=== PATIENT | female | born 1955 ===

== ENCOUNTER 2021-07-21 22:41 | Inpatient (IN) | payer OTHER ==
[2021-07-21] MEDS ORDERED: NA CHLORIDE 0.9% 1,000 ML ONE (22:57)
[2021-07-21] MEDS ORDERED: ONDANSETRON 4 MG/2 ML VIAL ONE (22:57)
[2021-07-21] MEDS ORDERED: NA CHLORIDE 0.9% 500 ML ONE (22:57)
[2021-07-21] MEDS ORDERED: MORPHINE 4 MG/ML SYR ONE (22:57)
[2021-07-21] MEDS ORDERED: PANTOPRAZOLE 40 MG INJ ONE (22:57)
[2021-07-21 23:36] LABS: Protime INR 1.07
[2021-07-21 23:57] LABS: ALT/SGPT 49 U/L (12-78); AST/SGOT 69 U/L (15-37); Albumin 2.3 g/dL (3.4-5.0); Alkaline Phosphatase 247 U/L (45-117); BUN Blood Urea Nitrogen 43 mg/dL (7-18); Bicarbonate 27 mmol/L (21-32); Bilirubin Direct 0.2 mg/dL (0-0.2); Bilirubin Total 0.5 mg/dL (0.2-1.0); Glucose Level 112 mg/dL (74-106); Lipase 273 U/L (73-393); Magnesium 2.3 mg/dL (1.8-2.4); NT PRO-BNP 1873 pg/mL (<125); Potassium 3.8 mmol/L (3.5-5.1); Protein, Total 8.1 g/dL (6.4-8.2); Sodium Level 133 mmol/L (136-145); Troponin (Emerg Dept Use Only) < 0.02 ng/mL (0.0-0.045)
--- NOTE | 2021-07-21 23:59 | ER ---
Nurse's Notes [facility] Name: Katie Lacy Age: 66 yrs Sex: Female : 1955 Arrival Date: 07/21/2021 Time: 22:42 Bed 15 Private MD: Diagnosis: Unspecified kidney failure;Fistula of intestine;Burn of second degree of abdominal wall-excoriated;Cellulitis of abdominal wall;Type 2 diabetes mellitus with hyperglycemia Presentation: 07/21 22:46 Chief complaint: Patient states: Pt arrived EMS from [facility] c/o abd df1 pain x 1 week. Coronavirus screen: Vaccine status: Patient reports receiving the 2nd dose of the covid vaccine. Client denies travel out of the [place] in the last 14 days. At this time, the client does not indicate any symptoms associated with coronavirus-19. Ebola Screen: Patient negative for fever greater than or equal to 101.5 degrees Fahrenheit, and additional compatible Ebola Virus Disease symptoms Patient denies exposure to infectious person. Patient denies travel to an Ebola-affected area in the 21 days before illness onset. Initial Sepsis Screen: Does the patient meet any 2 criteria? No. Patient's initial sepsis screen is negative. Does the patient have a suspected source of infection? No. Patient's initial sepsis screen is negative. Risk Assessment: Do you want to hurt yourself or someone else? Patient reports no desire to harm self or others. Onset of symptoms was July 14, 2021. 22:46 Method Of Arrival: EMS: [facility] df1 22:46 Acuity: COLBY 3 df1 Triage Assessment: 22:48 General: Appears in no apparent distress. uncomfortable, Behavior is calm, cooperative. df1 Pain: Complains of pain in right upper quadrant, left upper quadrant, right lower quadrant and left lower quadrant Pain does not radiate. Pain currently is 6 out of 10 on a pain scale. GI: Abdomen is flat, open fistula draining stool noted. Historical: - Allergies: 22:48 No Known Allergies; df1 - Home Meds: 07/22 00:13 aspirin 81 mg Oral tab 81 mg daily [Active]; atorvastatin 20 mg oral tab 1 tab once df1 daily [Active]; calcium carbonate 500 mg calcium (1,250 mg) Oral tab daily [Active]; Cymbalta 30 mg oral cpDR 1 cap 2 times per day [Active]; digoxin 250 mcg (0.25 mg) Oral tab 1 tab once daily [Active]; diphenoxylate-atropine 2.5-0.025 mg Oral tab 2 tabs 4 times per day [Active]; Lovenox 80 mg/0.8 mL Sub-Q syrg 0.8 mL every 12 hours [Active]; Klor-Con M20 20 mEq Oral TbTQ 1 tab 2 times per day [Active]; levothyroxine 25 mcg cap 1 cap once daily [Active]; melatonin 5 mg Oral cap nightly [Active]; metoprolol tartrate 25 mg Oral tab 1 tab 2 times per day [Active]; omega-3 fatty acids oral cap daily [Active]; Percocet 5-325 mg Oral tab 1 tab every 6 hours [Active]; sodium bicarbonate 650 mg Oral tab three times a day [Active]; trazodone 50 mg Oral tab 1 tab once daily [Active]; Ativan 0.5 mg Oral tab 1 tab as needed [Active]; Marinol 2.5 mg Oral cap 1 cap 2 times per day [Active]; Seroquel 25 mg Oral tab 1 tab nightly [Active]; - PMHx: 07/21 22:48 Diabetes mellitus; Hypertensive disorder; postprocedural surgery fistula; Angina df1 pectoris; 07/22 00:13 Depressive disorder; Anxiety; Hypothyroidism; df1 - PSHx: 07/21 22:48 Total abdominal hysterectomy; df1 - Immunization history:: Adult Immunizations up to date, Client reports receiving the 2nd dose of the Covid vaccine, Pneumococcal vaccine is up to date, Flu vaccine is up to date. - Social history:: Smoking status: Patient denies any tobacco usage or history of. - Family history:: not pertinent. Screenin:53 Abuse screen: Denies threats or abuse. Nutritional screening: No deficits noted. df1 Tuberculosis screening: No symptoms or risk factors identified. Fall Risk None identified. Assessment: 22:53 GI: Pt has open wound from mid abd area draining stool. Skin surrounding wound red/ df1 inflamed. Bowel sounds present X 4 quads. Abd is soft Abdomen is tender to palpation X 4 quads. Reports lower abdominal pain, upper abdominal pain, Patient currently denies nausea. 23:16 Reassessment: Point of Contact (Daughter) [phone]. ss Vital Signs: 22:46 BP 130 / 87; Pulse 89; Resp 18; Temp 97.5(O); Pulse Ox 100% on R/A; Weight 68.04 kg; df1 Height 5 ft. 3 in. (160.02 cm); Pain 6/10; 07/22 00:22 BP 114 / 70; Pulse 88; Resp 18; Pulse Ox 95% on R/A; Pain 4/10; df1 01:30 BP 119 / 69; Pulse 87; Resp 18; Pulse Ox 100% on R/A; df1 07/21 22:46 Body Mass Index 26.57 (68.04 kg, 160.02 cm) df1 ED Course: 07/21 22:42 Patient arrived in ED. ss 22:44 Dudley Gallagher MD is Attending Physician. mely 22:46 iRma Arellano is Primary Nurse. df1 22:48 Triage completed. df1 22:48 Arm band placed on right wrist. df1 22:53 Patient has correct armband on for positive identification. Placed in gown. Bed in low df1 position. Call light in reach. Side rails up X 1. geophysical laboratory supervisor on. Pulse ox on. NIBP on. 22:53 No provider procedures requiring assistance completed. df1 23:14 Inserted saline lock: 22 gauge in right antecubital area, using aseptic technique. ds4 Blood collected. Missed attempt(s): 20 gauge in right forearm. Bleeding controlled, band aid applied, catheter tip intact. 23:36 Chest Single View In Process Unspecified. EDMS 07/22 00:05 initiated a transfer Cathy from [facility]. mw2 00:24 Wound care: to Fistula to abdomen draining yellow/brown stool. Xeroform placed to df1 excoriated areas around wound. Dry gauze placed directly to open areas. ABD pads placed over. Pt tolerated well. Excoriated wound extends from left iliac to right iliac and down to rios areas and between thighs and groin. Topical lotion placed to these areas. 00:28 [facility] denied due to capacity. mw2 00:32 initiated a transfer with Fay from [facility]. mw2 00:41 Titi Becerra DO is Hospitalizing Provider. mely 00:45 [facility] denied due to capacity. mw2 00:55 Urine Culture Sent. df1 01:53 Urine Microscopic Only Sent. df1 01:53 Procalcitonin Sent. df1 03:13 Patient admitted, IV remains in place. df1 Administered Medications: 07/20 23:15 Drug: NS 0.9% 500 ml Route: IV; Rate: bolus; Site: right antecubital; df1 07/22 00:23 Follow up: IV Status: Completed infusion; IV Intake: 500ml df1 07/20 23:15 Drug: NS 0.9% 1000 ml Route: IV; Rate: 125 ml/hr; Site: right antecubital; df1 23:15 Drug: ProTONIX (pantoprazole) 40 mg Route: IVP; Site: right antecubital; df1 07/22 00:24 Follow up: Response: No adverse reaction df1 07/20 23:15 Drug: morphine 4 mg Route: IVP; Site: right antecubital; df1 07/22 00:24 Follow up: Response: Pain is decreased df1 07/20 23:15 Drug: Zofran (Ondansetron) 4 mg Route: IVP; Site: right antecubital; df1 07/22 00:23 Follow up: Response: No adverse reaction df1 00:55 Drug: Zosyn (piperacillin-tazobactam) 3.375 grams Route: IVPB; Infused Over: 60 mins; df1 Site: right antecubital; 02:16 Follow up: IV Status: Completed infusion; IV Intake: 50ml df1 Intake: 00:23 IV: 500ml; Total: 500ml. df1 02:16 IV: 50ml; Total: 550ml. df1 Outcome: 07/21 23:58 ER care complete, transfer ordered by . [facility] 07/22 00:46 Decision to Hospitalize by Provider. mely 03:13 Admitted to Med/surg accompanied by tech. df1 03:13 Condition: stable 03:13 Instructed on the need for admit. 03:16 Patient left the ED. df1 Signatures: Dispatcher [employer] EDMS Dudley Gallagher MD MD cha Smirch, Shelby, RN RN ss Yeison Queen ds4 Dru Lemra mw2 Rima Arellano df1
--- NOTE | 2021-07-21 23:59 | EDPHYS ---
Physician Documentation [facility] Name: Katie Lacy Age: 66 yrs Sex: Female : 1955 Arrival Date: 07/21/2021 Time: 22:42 Bed 15 Private MD: ED Physician Dudley Gallagher HPI: 07/21 22:55 This 66 yrs old Female presents to ER via EMS with complaints of Abdominal mely Pain. 22:55 The patient presents with abdominal pain in the upper abdomen, in the lower abdomen. mely Onset: The symptoms/episode began/occurred 6 week(s) ago. The symptoms do not radiate. Associated signs and symptoms: none. The symptoms are described as constant. Modifying factors: The symptoms are alleviated by nothing, the symptoms are aggravated by movement, pressure, touching the area. Severity of pain: At its worst the pain was moderate in the emergency department the pain is unchanged. The patient has not experienced similar symptoms in the past. Historical: - Allergies: 22:48 No Known Allergies; df1 - Home Meds: 07/22 00:13 aspirin 81 mg Oral tab 81 mg daily [Active]; atorvastatin 20 mg oral tab 1 tab once df1 daily [Active]; calcium carbonate 500 mg calcium (1,250 mg) Oral tab daily [Active]; Cymbalta 30 mg oral cpDR 1 cap 2 times per day [Active]; digoxin 250 mcg (0.25 mg) Oral tab 1 tab once daily [Active]; diphenoxylate-atropine 2.5-0.025 mg Oral tab 2 tabs 4 times per day [Active]; Lovenox 80 mg/0.8 mL Sub-Q syrg 0.8 mL every 12 hours [Active]; Klor-Con M20 20 mEq Oral TbTQ 1 tab 2 times per day [Active]; levothyroxine 25 mcg cap 1 cap once daily [Active]; melatonin 5 mg Oral cap nightly [Active]; metoprolol tartrate 25 mg Oral tab 1 tab 2 times per day [Active]; omega-3 fatty acids oral cap daily [Active]; Percocet 5-325 mg Oral tab 1 tab every 6 hours [Active]; sodium bicarbonate 650 mg Oral tab three times a day [Active]; trazodone 50 mg Oral tab 1 tab once daily [Active]; Ativan 0.5 mg Oral tab 1 tab as needed [Active]; Marinol 2.5 mg Oral cap 1 cap 2 times per day [Active]; Seroquel 25 mg Oral tab 1 tab nightly [Active]; - PMHx: 07/21 22:48 Diabetes mellitus; Hypertensive disorder; postprocedural surgery fistula; Angina df1 pectoris; 07/22 00:13 Depressive disorder; Anxiety; Hypothyroidism; df1 - PSHx: 07/21 22:48 Total abdominal hysterectomy; df1 - Immunization history:: Adult Immunizations up to date, Client reports receiving the 2nd dose of the Covid vaccine, Pneumococcal vaccine is up to date, Flu vaccine is up to date. - Social history:: Smoking status: Patient denies any tobacco usage or history of. - Family history:: not pertinent. ROS: 22:55 Constitutional: Negative for fever, chills, and weight loss, Eyes: Negative for injury, mely pain, redness, and discharge, ENT: Negative for injury, pain, and discharge, Neck: Negative for injury, pain, and swelling, Cardiovascular: Negative for chest pain, palpitations, and edema, Respiratory: Negative for shortness of breath, cough, wheezing, and pleuritic chest pain, Back: Negative for injury and pain, : Negative for injury, bleeding, discharge, and swelling, MS/Extremity: Negative for injury and deformity, Neuro: Negative for headache, weakness, numbness, tingling, and seizure, Psych: Negative for depression, anxiety, suicide ideation, homicidal ideation, and hallucinations, Allergy/Immunology: Negative for hives, rash, and allergies, Endocrine: Negative for neck swelling, polydipsia, polyuria, polyphagia, and marked weight changes, Hematologic/Lymphatic: Negative for swollen nodes, abnormal bleeding, and unusual bruising. 22:55 Abdomen/GI: Positive for abdominal pain, abdominal cramps, of the right upper quadrant, left upper quadrant, right lower quadrant and left lower quadrant. 22:55 Skin: Positive for erythema, of the abdomen, diffusely, excoriated. Exam: 22:55 Constitutional: This is a well developed, well nourished patient who is awake, alert, mely and in no acute distress. Head/Face: Normocephalic, atraumatic. Eyes: Pupils equal round and reactive to light, extra-ocular motions intact. Lids and lashes normal. Conjunctiva and sclera are non-icteric and not injected. Cornea within normal limits. Periorbital areas with no swelling, redness, or edema. ENT: Nares patent. No nasal discharge, no septal abnormalities noted. Tympanic membranes are normal and external auditory canals are clear. Oropharynx with no redness, swelling, or masses, exudates, or evidence of obstruction, uvula midline. Mucous membranes moist. Neck: Trachea midline, no thyromegaly or masses palpated, and no cervical lymphadenopathy. Supple, full range of motion without nuchal rigidity, or vertebral point tenderness. No Meningismus. Chest/axilla: Normal chest wall appearance and motion. Nontender with no deformity. No lesions are appreciated. Cardiovascular: Regular rate and rhythm with a normal S1 and S2. No gallops, murmurs, or rubs. Normal PMI, no JVD. No pulse deficits. Respiratory: Lungs have equal breath sounds bilaterally, clear to auscultation and percussion. No rales, rhonchi or wheezes noted. No increased work of breathing, no retractions or nasal flaring. Back: No spinal tenderness. No costovertebral tenderness. Full range of motion. Female : Normal external genitalia. MS/ Extremity: Pulses equal, no cyanosis. Neurovascular intact. Full, normal range of motion. Neuro: Awake and alert, GCS 15, oriented to person, place, time, and situation. Cranial nerves II-XII grossly intact. Motor strength 5/5 in all extremities. Sensory grossly intact. Cerebellar exam normal. Normal gait. Psych: Awake, alert, with orientation to person, place and time. Behavior, mood, and affect are within normal limits. 22:55 Abdomen/GI: Inspection: abdomen excoriated, with draining fistula, Bowel sounds: normal, Palpation: mild abdominal tenderness, in all quadrants, Liver: no appreciated palpable abnormalities, Hernia: not appreciated. 22:55 Skin: cellulitis, that is moderate, entire abdomen excoriated, painful. 23:10 ECG was reviewed by the Attending Physician. [facility] Vital Signs: 22:46 BP 130 / 87; Pulse 89; Resp 18; Temp 97.5(O); Pulse Ox 100% on R/A; Weight 68.04 kg; df1 Height 5 ft. 3 in. (160.02 cm); Pain 6/10; 07/22 00:22 BP 114 / 70; Pulse 88; Resp 18; Pulse Ox 95% on R/A; Pain 4/10; df1 01:30 BP 119 / 69; Pulse 87; Resp 18; Pulse Ox 100% on R/A; df1 07/21 22:46 Body Mass Index 26.57 (68.04 kg, 160.02 cm) df1 MDM: 07/21 22:44 Patient medically screened. mely 23:01 Differential diagnosis: gastroesophageal reflux disease, non-specific abd pain, mely pancreatitis, Pyelonephritis, urinary tract infection. Data reviewed: vital signs, nurses notes, lab test result(s), EKG, radiologic studies, CT scan, plain films. Data interpreted: property assessment monitor: rate is 89 beats/min, rhythm is regular, Pulse oximetry: on room air is 100 %. Test interpretation: by ED physician or midlevel provider: ECG, plain radiologic studies. Counseling: I had a detailed discussion with the patient and/or guardian regarding: the historical points, exam findings, and any diagnostic results supporting the discharge/admit diagnosis, lab results, radiology results, the need to transfer to another facility, for higher level of care, [facility] does not immediately have the required specialist. 07/21 22:54 Order name: Basic Metabolic Panel; Complete Time: 23:58 [facility] 07/21 22:54 Order name: CBC with Diff; Complete Time: 00:14 [facility] 07/21 22:54 Order name: LFT's; Complete Time: 23:58 [facility] 07/21 22:54 Order name: Magnesium; Complete Time: 23:58 [facility] 07/21 22:54 Order name: NT PRO-BNP; Complete Time: 23:58 [facility] 07/21 22:54 Order name: PT-INR; Complete Time: 23:55 [facility] 07/21 22:54 Order name: Troponin (emerg Dept Use Only); Complete Time: 23:58 [facility] 07/21 22:54 Order name: Lipase; Complete Time: 23:58 [facility] 07/21 22:54 Order name: Lactate; Complete Time: 23:55 [facility] 07/21 22:54 Order name: SARS-COV-2 RT PCR (Document "Date of Onset" if Symptomatic); Complete Time: [facility] 00:11 07/21 23:10 Order name: Digoxin; Complete Time: 23:58 [facility] 07/22 00:01 Order name: Urine Culture [facility] 07/22 00:36 Order name: Urine Dipstick-Ancillary; Complete Time: 00:42 [facility] 07/22 01:21 Order name: Blood Culture Adult (2) [facility] 07/21 23:12 Order name: Chest Single View [facility] 07/22 00:10 Order name: Abdomen [facility] 07/22 01:21 Order name: Uric Acid [facility] 07/22 01:21 Order name: TSH [facility] 07/22 01:21 Order name: T4 Free [facility] 07/22 01:21 Order name: Procalcitonin [facility] 07/22 01:26 Order name: Urine Microscopic Only [facility] 07/22 01:27 Order name: Urine Microscopic Only [facility] 07/21 22:54 Order name: EKG; Complete Time: 23:17 [facility] 07/21 22:54 Order name: Cardiac monitoring; Complete Time: 23:14 [facility] 07/21 22:54 Order name: EKG - Nurse/Tech; Complete Time: 23:14 [facility] 07/21 22:54 Order name: IV Saline Lock; Complete Time: 23:14 [facility] 07/21 22:54 Order name: Labs collected and sent; Complete Time: 23:14 [facility] 07/21 22:54 Order name: O2 Per Protocol; Complete Time: 23:14 [facility] 07/21 22:54 Order name: O2 Sat Monitoring; Complete Time: 23:14 [facility] 07/21 23:59 Order name: Bae; Complete Time: 23:59 [facility] 07/22 00:01 Order name: Urine Dipstick-Ancillary (obtain specimen); Complete Time: 00:55 [facility] EC:10 Rate is 89 beats/min. Rhythm is regular. QRS [place] is Normal. NM interval is normal. QRS mely interval is normal. QT interval is normal. No Q waves. T waves are Normal. ST Segment is depressed in leads II, III, aVF, V3, V4, V5, V6. Interpreted by me. Reviewed by me. Administered Medications: 07/20 23:15 Drug: NS 0.9% 500 ml Route: IV; Rate: bolus; Site: right antecubital; [facility] 07/22 00:23 Follow up: IV Status: Completed infusion; IV Intake: 500ml [facility] 07/20 23:15 Drug: NS 0.9% 1000 ml Route: IV; Rate: 125 ml/hr; Site: right antecubital; df1 23:15 Drug: ProTONIX (pantoprazole) 40 mg Route: IVP; Site: right antecubital; df1 07/22 00:24 Follow up: Response: No adverse reaction df1 07/20 23:15 Drug: morphine 4 mg Route: IVP; Site: right antecubital; df1 07/22 00:24 Follow up: Response: Pain is decreased df1 07/20 23:15 Drug: Zofran (Ondansetron) 4 mg Route: IVP; Site: right antecubital; df1 07/22 00:23 Follow up: Response: No adverse reaction df1 00:55 Drug: Zosyn (piperacillin-tazobactam) 3.375 grams Route: IVPB; Infused Over: 60 mins; df1 Site: right antecubital; 02:16 Follow up: IV Status: Completed infusion; IV Intake: 50ml df1 Disposition Summary: 07/22/21 00:46 Hospitalization Ordered Hospitalization Status: Inpatient Admission mely Provider: iTti Becerra cha Location: Telemetry/MedSurg (Inpatient) mely Condition: Stable(07/22/21 00:46) mely Problem: new(07/22/21 00:46) mely Symptoms: have improved(07/22/21 00:46) mely Bed/Room Type: Standard mely Room Assignment: 204(07/22/21 01:23) Diagnosis - Unspecified kidney failure mely - Fistula of intestine(07/22/21 00:46) mely - Burn of second degree of abdominal wall - excoriated(07/22/21 00:46) mely - Cellulitis of abdominal wall mely - Type 2 diabetes mellitus with hyperglycemia(07/22/21 00:46) mely Forms: - Medication Reconciliation Form mely - SBAR form mely Signatures: Dispatcher [employer] EDDee Dee Mcelroy RN RN mw Anderson, Corey, MD MD cha Attema, Lee, HOT KNIFE FOXING CUTTER-C HOT KNIFE FOXING CUTTER-Cla1 Rima Arellano df1 Corrections: (The following items were deleted from the chart) 07/21 23:41 23:12 Abdomen ordered. EDMS EDMS 23:55 23:17 Chest Single View+RAD.RAD.BRZ ordered. EDMS EDMS 07/22 00:10 07/21 23:17 Abdomen Pelvis W Con+CT.RAD.BRZ ordered. EDMS EDMS 07/22 00:10 00:02 Abdomen Pelvis W Con+CT.RAD.BRZ ordered. EDMS EDMS 00:41 07/21 23:58 to gnosticism [facility] 07/22 00:41 07/21 23:58 Zoroastrianism System [facility] 07/22 00:41 07/21 23:58 Higher level of care [facility] 07/22 00:41 07/21 23:58 Fair [facility] 07/22 00:41 07/21 23:58 new [facility] 07/22 00:41 07/21 23:58 have improved [facility] 07/22 00:41 07/21 23:58 Abdominal pain, Generalized [facility] 07/22 00:41 07/21 23:58 Fistula of intestine [facility] 07/22 00:41 07/21 23:58 Burn of second degree of abdominal wall - excoriated [facility] 07/22 00:41 07/21 23:58 Type 2 diabetes mellitus with hyperglycemia [facility] 07/22 01:23 00:46 [facility]
[2021-07-22 00:12] LABS: Basophils % 0.4 % (0-1.3); Hematocrit 36.4 % (36.0-45.0); Lymphocytes % 32.7 % (15.3-44.8); MPV 7.2 fL (7.6-11.3); RBC Red Blood Cell Count 4.06 M/uL (3.86-4.86)
[2021-07-22 00:36] LABS: Urine Blood 3+ (Negative); Urine Glucose Negative (Negative); Urine Protein 2+ (Negative); Urine Specific Gravity 1.015 (1.005-1.030)
[2021-07-22] MEDS ORDERED: PIPERACIL/TAZO 3.375 GM VIAL IV ONE (00:36)
[2021-07-22] MEDS ORDERED: NA CHLORIDE 0.9% 50 ML ONE (00:37)
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
[2021-07-22 01:48] LABS: Uric Acid 13.6 mg/dL (2.6-6.0)
[2021-07-22 01:51] LABS: Thyroid Stimulating Hormone 4.98 uIU/mL (0.360-3.740)
[2021-07-22 01:59] LABS: Urine Bacteria 20-50 /HPF (<20); Urine RBC 20-50 /HPF (NONE SEEN)
[2021-07-22 02:00] LABS: Urine Urothelial Cells <5 /HPF (NONE SEEN)
[2021-07-22] MEDS ORDERED: NA CHLORIDE 0.9% 1,000 ML IV SCH (03:27)
[2021-07-22 04:28] VITALS: BMI 26.5
[2021-07-22] MEDS ORDERED: ONDANSETRON 4 MG/2 ML VIAL IV PRN (05:00)
--- NOTE | 2021-07-22 05:48 | P.PN ---
Subjective Date of Service: 07/22/21 Primary Care Provider: senior living doctor Chief Complaint: Abdominal wound, abdominal fistula Subjective: Other (Patient appears stable. No significant pain noted.) Physical Examination - Vital Signs Temperature: 97.5 F Blood Pressure: 119/69 Pulse: 87 Respirations: 18 - Studies Laboratory Data (last 24 hrs) 07/22/21 00:00: Uric Acid 13.6 H 07/21/21 23:10: PT 12.3, INR 1.07 07/21/21 23:10: WBC 9.10, Hgb 11.9 L, Hct 36.4, Plt Count 243 07/21/21 23:10: Sodium 133 L, Potassium 3.8, BUN 43 H, Creatinine 2.52 H, Glucose 112 H, Magnesium 2.3, Total Bilirubin 0.5, AST 69 H, ALT 49, Alkaline Phosphatase 247 H, Lipase 273 Assessment & Plan Discharge Plan: Other (LTAC) Plan to discharge in: Greater than 2 days Physician Review Additional Text: COVID: negative CT scan: Impression: Anterior abdominal wall defect with exposed small bowel along the anterior abdomen. Oral contrast within the stomach reached the anterior aspect of the abdomen with the most likely extravasation. Status post rectosigmoid colon resection and reanastomosis Left internal ureteral stent in good position Slightly decreased inhomogenous attenuation right hepatic lobe suspicious for fatty liver Coronary artery calcification Renal US: COMPARISON: Abdomen Pelvis Wo Contrast dated 07/22/2021 FINDINGS: The right kidney measures grossly 8.7 x 4.9 cm. The left kidney measures grossly 9.94.7 cm. Cortical thickness is normal. There is increased renal cortical echogenicity that is probably due to underlying medical renal disease. Body habitus affects and increased cortical echogenicity. No hydronephrosis or suspicious renal mass. Patient has an indwelling left ureteral stent is difficult to visualize sonographically. Bladder could not be accessed for visualization. CT study performed several hours earlier show the bladder contracted around a Bae catheter. IMPRESSION: Underlying medical renal disease is evident but no hydronephrosis and no mass lesions seen. Physical exam: General: Alert, In no apparent distress, Oriented x3 HEENT: Neck supple Respiratory: Clear to auscultation bilaterally, Normal air movement Cardiovascular: Regular rate/rhythm, Normal S1 S2 Capillary refill: <2 Seconds Gastrointestinal: Normal bowel sounds, No tenderness, Other (Patient with abdominal fistula leaking stool), Tenderness Musculoskeletal: No tenderness Integumentary: Significant skin breakdown to the abdomen. Swelling, tenderness noted. Abdominal wound noted with fistula. Wound extends from below umbilicus across the entire abdomen down to the pelvic region with exposed dermis and leaking fistula noted. Neurological: Normal speech, Normal strength at 5/5 x4 extr, Normal tone, Normal affect Impression: Severe abdominal wound complicated with abdominal wall fistula with rectosigmoid colon resection/reanastomosis and prior complicated hysterectomy with complications Acute on chronic renal disease stage IV Diabetes mellitus type 2 Hypertension Hypothyroidism Plan: Severe abdominal wound complicated with abdominal wall fistula with rectosigmoid colon resection/reanastomosis and prior complicated hysterectomy with complications: Patient remains n.p.o. Surgery, plastic surgery, and infectious disease consulted for recommendations. Patient may require surgical intervention. Will need to obtain medical records from [place]. Continue IV antibiotic therapyZosyn. Continue IV fluids. Nephrology also consulted to address acute renal failure. Patient with extensive abdominal wounds and complicated prior surgical intervention. I will turn the service over to the hospitalist team tomorrow. I will go plan of care with him. Acute on chronic renal disease stage IV: Continue IV fluids. Renal ultrasound shows medical renal disease. Await further recommendations from nephrology. UTI: Continue IV antibiotic therapy. Blood, wound, urine cultures obtained. Diabetes mellitus type 2: Continue Accu-Cheks and sliding scale. Hypertension: Patient with history of hypertension. Blood pressure stable off medication at this time. Will monitor closely. Hypothyroidism: Need to obtain and verify home medication. DVT PPX: SCD for now. If no intervention is planned will need to private branch exchange repairer to heparin. Code status: Full code Discharge Plan: Patient will likely require long-term acute care facility placement Time Spent Managing Pts Care (In Minutes): 55
--- NOTE | 2021-07-22 06:11 | P.CNS ---
Date of Consult: 07/22/21 Reason for Consult: Renal failure Requesting Physician: Titi Becerra Primary Care Provider: [facility] doctor Chief Complaint: Abdominal wound, abdominal fistula History of Present Illness: 66F w/ PMHx of Htn, DM2, hx of uterine mass s/p hysterectomy in [address] [facility] in [place], ovarian mass s/p abdominal surgery in December 2020 c/b colonic perforation & abdominal wall fistula s/p rectosigmoid colon resection & reanastomosis, who p/w abdominal pain w/ drainage from the fistula. She reports she was in another hospital in [place] 2 mos to undergo surgical repair of her abd fistula but was cancelled d/t complexity of her anatomy. She is now admitted for further surgical evaluation. She is referred to Nephrology for renal failure. SCr on adm is 2.5. She denies hx of kidney dse. She denies NSAID use, N/V/D/poor po intake. Allergies No Known Allergies Allergy (Verified 07/21/21 23:10) Home Medications: Aspirin 81 mg PO DAILY 6PM 07/22/21 Atorvastatin Calcium [Lipitor*] 20 mg PO BEDTIME 07/22/21 Calcium Carbonate [Calcium] 1,250 mg PO DAILY 07/22/21 Digoxin [Lanoxin] 250 mcg PO DAILY 07/22/21 Diphenoxylate HCl/Atropine [Diphenoxylate-Atrop 2.5-0.025] 2 mg PO BID 07/22/21 Duloxetine HCl [Cymbalta] 30 mg PO BID 07/22/21 Enoxaparin Sodium [Lovenox 80 MG INJ*] 80 mg SQ BID 07/22/21 Levothyroxine Sodium [Levothyroxine] 25 mcg PO DAILY 07/22/21 Loperamide [Imodium*] 2 mg pe PO TID 07/22/21 Lorazepam [Ativan] 0.5 mg PO Q6H PRN 07/22/21 Melatonin 5 mg PO BEDTIME 07/22/21 Metoprolol Tartrate 25 mg PO BID 07/22/21 Oxycodone HCl/Acetaminophen [Percocet 5-325 mg Tablet] 1 each PO Q6H 07/22/21 Quetiapine Fumarate [Seroquel] 25 mg PO BEDTIME 07/22/21 Sodium Bicarbonate 650 mg PO TID 07/22/21 Temazepam 30 mg PO BEDTIME 07/22/21 Trazodone [Desyrel*] 50 mg PO BEDTIME 07/22/21 dronabinoL [Marinol] 2.5 mg PO BID 07/22/21 - Past Medical/Surgical History Diabetic: No -: Hypertension -: Hypothyroidism -: Diabetes mellitus type 2- pt denies -: Cholecystectomy -: Ovarian mass resection with complications including abdominal wall fistula Psychosocial/ Personal History: Patient is currently resident at [facility] - Family History Mother Medical History: Heart disease Sister Medical History: Stroke - Social History Alcohol use: No CD- Drugs: No Caffeine use: Yes Place of Residence: Home Review of Systems General: Weakness Eyes: Unremarkable ENT: Unremarkable Respiratory: Unremarkable Cardiovascular: Unremarkable Gastrointestinal: Abdominal Pain, Other (Fistula drainage) Genitourinary: Unremarkable Musculoskeletal: Unremarkable Integumentary: Unremarkable Neurological: Unremarkable Lymphatics: Unremarkable Physical Examination Temp Pulse Resp BP Pulse Ox 97.5 F 87 18 119/69 07/22/21 05:48 07/22/21 05:48 07/22/21 05:48 07/22/21 05:48 General: Alert, In no apparent distress, Oriented x3 HEENT: Atraumatic, Normocephalic Neck: Supple, JVD not distended Respiratory: Clear to auscultation bilaterally Cardiovascular: No rubs, No murmurs Gastrointestinal: Soft and benign, Non-distended, Other (+wound dressing) Musculoskeletal: No clubbing, No swelling Integumentary: No warmth Neurological: Normal speech, Normal tone Lymphatics: No axilla or inguinal lymphadenopathy Urinary: Other (No bladder distention) External genitalia: Deferred Rectal: Deferred Laboratory Data (last 24 hrs) 07/22/21 00:00: Uric Acid 13.6 H 07/21/21 23:10: PT 12.3, INR 1.07 07/21/21 23:10: WBC 9.10, Hgb 11.9 L, Hct 36.4, Plt Count 243 07/21/21 23:10: Sodium 133 L, Potassium 3.8, BUN 43 H, Creatinine 2.52 H, Glucose 112 H, Magnesium 2.3, Total Bilirubin 0.5, AST 69 H, ALT 49, Alkaline Phosphatase 247 H, Lipase 273 Conclusions/Impression: # TE likely 2/2 preren Has L internal ureteral stent SCr 2.5 on adm Baseline renal fxn unknown; will need to obtain records from [place] CPK wnl, no rhabdo Urinalysis showed 2+ proteinuria/hematuria/pyuria +Mild proteinuria 1.2 g on random upcr iPTH wnl, no evidence of advanced CKD at baseline Cont IV fluids Monitor I/O, renal panel # Hysterectomy c/b abdominal wall fistula Further surg eval ongoing #Abnormal LFT +Hx of cholecystectomy Lipase wnl F/u GGT # Htn BP low normal, monitor # DM2 Mngt per primary team # Hypothyroidism Mngt per primary team
--- NOTE | 2021-07-22 07:24 | RAD REPORT ---
EXAM DESCRIPTION: US - Renal Ultrasound-Complete - 07/22/2021 6:04 am CLINICAL HISTORY: hyun COMPARISON: Abdomen Pelvis Wo Contrast dated 07/22/2021 FINDINGS: The right kidney measures grossly 8.7 x 4.9 cm. The left kidney measures grossly 9.94.7 c m. Cortical thickness is normal. There is increased renal cortical echogenicity that is probably due to underlying medical renal disease. Body habitus affects and increased cortical echogenicity. No hyd ronephrosis or suspicious renal mass. Patient has an indwelling left ureteral stent is difficult to v isualize sonographically. Bladder could not be accessed for visualization. CT study performed several hours earlier show the bl adder contracted around a Bae catheter. IMPRESSION: Underlying medical renal disease is evident but no hydronephrosis and no mass lesions se en.
--- NOTE | 2021-07-22 07:26 | RAD REPORT ---
EXAM DESCRIPTION: RAD - Chest Single View - 07/21/2021 11:36 pm CLINICAL HISTORY: abdominal pain COMPARISON: None TECHNIQUE: AP portable chest image was obtained 07/21/2021 11:36 pm . FINDINGS: No focal mass or consolidation. Fibro emphysematous changes are evident in the lung suh . No significant failure or volume overload identifiable. Trachea is in midline. Right-sided PICC line in place with tip in the mid SVC. Heart and vasculature are normal. No measurable pleural effusion and no pneumothorax. No acute bony abnormality seen. No ac nilson aortic findings suspected. No free air under the diaphragm. IMPRESSION: No acute cardiopulmonary process.
[2021-07-22] MEDS: INSULIN -REGULAR HUMAN 50 UNIT/0.5 ML ML SQ SCH ×4 (07:30→20:47)
[2021-07-22] MEDS ORDERED: FOLIC ACID 5 MG/ML VIAL IVP SCH (09:00)
[2021-07-22] MEDS: FOLIC ACID 1 MG in NA CHLORIDE 0.9% 50 ML IV SCH (10:02)
[2021-07-22] MEDS: THIAMINE 200 MG/2 ML INJ IVP SCH (10:02)
[2021-07-22] MEDS: PIPER TAZO 3.375 GM in NA CHLORIDE 0.9% 100 ML IV SCH ×2 (10:02→17:56)
[2021-07-22] MEDS: D5 0.9 NS 1,000 ML IV SCH ×2 (10:14→20:47)
--- NOTE | 2021-07-22 11:39 | RAD REPORT ---
EXAM DESCRIPTION: CT - Abdomen Pelvis Wo Contrast - 07/22/2021 6:16 am CLINICAL HISTORY: 66 years, Female, ABD PAIN COMPARISON: None. TECHNIQUE: Multiple transaxial tomograms of the abdomen and pelvis were performed from the lung base s to the symphysis pubis 5 mm slice thickness at 5 mm interval reconstruction, without administration of IV and oral contrast. Multiplanar reformats in the sagittal and coronal plane were generated and reviewed. This exam was performed according to our departmental dose-optimization protocol, which includes auto mated exposure control, adjustment of the mA and/or kV according to patient size and/or use of iterat olayinka reconstruction technique. FINDINGS: The lack of IV and oral contrast limits evaluation of solid organs, subtle lesions cannot be excluded. The lung bases demonstrate minimal dependent atelectatic changes. Coronary artery calcification and/o r stenting. Grossly the unopacified liver slight decreased inhomogeneous attenuation right hepatic lobe suspiciou s for fatty infiltration, less likely other process could be of consideration. Surgical clips within the gallbladder fossa correspond to previous cholecystectomy. The pancreas, spleen and adrenal glands demonstrate to be within normal limits, no significant focal lesions were identified. There is a left internal ureteral stent and good position. Otherwise the left and right kidney demons trate to be unremarkable. There is no evidence for nephrolithiasis and/or hydronephrosis. There is anterior abdominal wall defect with exposed small bowel along the anterior abdomen. Oral con trast within the stomach reached the anterior aspect of the abdomen with the most likely extravasatio n on a perhaps ileostomy on axial image 50-54. There is no evidence for bowel dilatation and/or free air. There is a status post rectosigmoid colon resection and reanastomosis. The urinary bladder demonstrate the presence of a Bae catheter. The uterus is absent. There are no adnexal masses The aorta demonstrate atherosclerotic disease extending into the aortic bifurcation/il iac arteries. There is no retroperitoneal lymphadenopathy. There is no evidence for ascites. The bone windows demonstrate mild diffuse bony osteopenia. IMPRESSION: Anterior abdominal wall defect with exposed small bowel along the anterior abdomen. Oral contrast within the stomach reached the anterior aspect of the abdomen with the most likely extravas ation on a perhaps ileostomy on axial image 50-54. Status post rectosigmoid colon resection and reanastomosis. Left internal ureteral stent and good position. Slightly decreased inhomogeneous attenuation right hepatic lobe suspicious for fatty infiltration, le ss likely other process could be of consideration. Coronary artery calcification and/or stenting. Electronically signed by: Tomy Loja MD 07/22/2021 2:39 AM CAGE CLERK Due to temporary technical issues with the PACS/Fluency reporting system, reports are being signed by the in house radiologist without review as a courtesy to ensure prompt reporting. The interpreting r adiologist is fully responsible for the content of the report.
--- NOTE | 2021-07-22 12:19 | P.CNS ---
Date of Consult: 07/22/21 Primary Care Provider: retirement doctor Chief Complaint: Abdominal wound, abdominal fistula History of Present Illness: The patient is C 6-year-old female with a past medical history of diabetes type 2, hypertension, hypothyroidism, and kidney disease who presented to emergency department secondary to a large a leaking enterocutaneous fistula. Patient states that back in December of this year she was treated and await C on on for an ovarian mass. However surgery was complicated with perforation of a segment of her colon. She is transferred to another hospital in had several other surgeries however patient does not recall which procedures were performed. Nonetheless patient developed diet large enteric cutaneous abdominal fistula due to this complication. Patient states that over the past week the drainage from her fistula has become more significant, frequent, and copious. Patient also has significant abdominal wound secondary to excoriations/moisture associated dermatitis in due to constant leaking stool from fistula. Infectious disease has been consulted to manage the patient's antibiotic regimen. Patient empirically started on Zosyn, renally dosed. Patient currently denies nausea/vomiting/diarrhea/babott breast/chest pain. Allergies No Known Allergies Allergy (Verified 07/21/21 23:10) Home Medications: Aspirin 81 mg PO DAILY 6PM 07/22/21 Atorvastatin Calcium [Lipitor*] 20 mg PO BEDTIME 07/22/21 Calcium Carbonate [Calcium] 1,250 mg PO DAILY 07/22/21 Digoxin [Lanoxin] 250 mcg PO DAILY 07/22/21 Diphenoxylate HCl/Atropine [Diphenoxylate-Atrop 2.5-0.025] 2 mg PO BID 07/22/21 Duloxetine HCl [Cymbalta] 30 mg PO BID 07/22/21 Enoxaparin Sodium [Lovenox 80 MG INJ*] 80 mg SQ BID 07/22/21 Levothyroxine Sodium [Levothyroxine] 25 mcg PO DAILY 07/22/21 Loperamide [Imodium*] 2 mg pe PO TID 07/22/21 Lorazepam [Ativan] 0.5 mg PO Q6H PRN 07/22/21 Melatonin 5 mg PO BEDTIME 07/22/21 Metoprolol Tartrate 25 mg PO BID 07/22/21 Oxycodone HCl/Acetaminophen [Percocet 5-325 mg Tablet] 1 each PO Q6H 07/22/21 Quetiapine Fumarate [Seroquel] 25 mg PO BEDTIME 07/22/21 Sodium Bicarbonate 650 mg PO TID 07/22/21 Temazepam 30 mg PO BEDTIME 07/22/21 Trazodone [Desyrel*] 50 mg PO BEDTIME 07/22/21 dronabinoL [Marinol] 2.5 mg PO BID 07/22/21 - Past Medical/Surgical History Diabetic: No -: Hypertension -: Hypothyroidism -: Diabetes mellitus type 2- pt denies -: Cholecystectomy -: Ovarian mass resection with complications including abdominal wall fistula Psychosocial/ Personal History: Patient is currently resident at [facility] - Family History Mother Medical History: Heart disease Sister Medical History: Stroke - Social History Alcohol use: No CD- Drugs: No Caffeine use: Yes Place of Residence: Home Review of Systems 10-point ROS is otherwise unremarkable Physical Examination Temp Pulse Resp BP Pulse Ox 97.5 F 87 18 119/69 95 07/22/21 08:29 07/22/21 08:29 07/22/21 08:29 07/22/21 08:29 07/22/21 08:00 General: Alert, In no apparent distress, Oriented x3 HEENT: Atraumatic, Normocephalic Neck: Supple, 2+ carotid pulse no bruit Respiratory: Clear to auscultation bilaterally Cardiovascular: No edema, Normal pulses Capillary refill: <2 Seconds Gastrointestinal: Other (Enterocutaneous fistula, moisture associated dermatitis/excoriation to abdomen.) Laboratory Data (last 24 hrs) 07/22/21 00:00: Uric Acid 13.6 H 07/21/21 23:10: PT 12.3, INR 1.07 07/21/21 23:10: WBC 9.10, Hgb 11.9 L, Hct 36.4, Plt Count 243 07/21/21 23:10: Sodium 133 L, Potassium 3.8, BUN 43 H, Creatinine 2.52 H, Glucose 112 H, Magnesium 2.3, Total Bilirubin 0.5, AST 69 H, ALT 49, Alkaline Phosphatase 247 H, Lipase 273 Conclusions/Impression: Antibiotics: Zosyn Start: 07/25 Assessment/plan Enterocutaneous fistula Recommend continuing Zosyn at this time. Also recommend placing colostomy bag over fistula to monitor output. Surgery consultation pending. Recommend patient's be sent to LTAC for further wound care/antibiotic management. TE Patient's current creatinine clearance is 20.3 milliliters/minute, as such Zosyn dosed q8hr vs q6hr -medical management per primary team -plan of care discussed with Dr. Loyola Thank you for consultation.
[2021-07-22 13:23] LABS: UR PROTEIN 136.3 mg/dL (<11.9); Urine Protein/Creatinine Ratio 1.22 ratio (<0.15)
--- NOTE | 2021-07-22 17:14 | CON ---
History Of Present Illness: The patient is a 66-year-old white female, who is a very poor historian, but was able to tell me her age and where she lives. She is very slow to respond. She says she has history of high blood pressure. She denies diabetes. She said she has previous gallbladder. She a lso had a hysterectomy done in December of this year in [place] and developed complications after that. Social History: Does not smoke, does not drink. Allergies: NO ALLERGIES. Medications: She is on multiple medications, she does not know what they are. Physical Examination: She is 5 feet 3 inches and 130 pounds on examination. She has what looks to be a colostomy in the id dline and area of excoriated skin covering the proximal 1/4th of the abdominal wall surface in the le ft lower quadrant area. Plan: We would recommend a colostomy bag. She would need a skin graft once she is being evaluated b y General Surgery. NOLVIA/J CARLOS Voice ID: [id number] Report ID: [id number]
--- NOTE | 2021-07-22 18:59 | CON ---
Date of Consultation: 07/22/2021 Brief History Of Present Illness: The patient is a 66-year-old female with poor insight to her past medical history, who presents with a history by report of diabetes type 2, hypertension, hy pothyroidism, significant abdominal surgery in the past, likely for ovarian mass treated in December 2020 in [place]. She has had multiple complications and complicated surgery of the abdominal wall and h ad developed a significant enterocutaneous fistula with portions of her small-bowel becoming extraper itonealised and fistulous in nature with several areas of small bowel in different portions of her ab dominal wall being exposed and leaking material. She was seen by report in [place], who opted to not perform any surgical intervention on her at that time. She continues to leak enteric contents o nto her abdominal wall and has significant cellulitic changes and excoriation of the abdominal skin. Past Medical History: Hypertension, hypothyroidism, and diabetes. Past Surgical History: Includes cholecystectomy, ovarian mass resection with complications leading t o abdominal wall fistula and multiple abdominal wall surgeries of uncertain etiology, enterocutaneous fistula. Family History: Mother has heart disease. Her sister has a stroke. She denies smoking, alcohol, or recreational drug use. Review of Systems: Ten-point review of systems other than HPI, denies. Allergies: NO KNOWN DRUG ALLERGIES. Medications: Unable to obtain and review at this point. Physical Examination: General: At the time of my examination, her temperature was 97.0, heart rate 83, blood pressure was 99/57, respiration rate is 15, pulse is 83, and SpO2 99% on room air. She denies any pain currently. General: She is awake and alert, but she has poor insight to her medical history. She is conversive . HEENT: She is otherwise normocephalic. Her sclerae anicteric. Mucous membranes moist. Oropharynx c lear. Neck: Supple without JVD. Chest: Normal expansion and excursion. Cardiovascular: Regular rate and rhythm. Pulmonary: Clear to auscultation bilaterally. Abdomen: She has significant abnormality of the abdominal wall with significant changes to the left abdominal wall with a large approximately 25 cm to 30 cm area of abdominal wall essentially as big as an 11 x 10 inch area of her abdominal wall is essentially excoriated, thin, firm, and cellulitic wit h excoriated skin. Within this large area of cellulitis, there are at least two to three areas of sm all bowel, which are obviously enterocutaneous fistulas with externalized portions of small bowel per istalsing and leaking enteric contents onto this area. It is bilious in color and predominantly liqu id. She denies any pain throughout the examination, however, other than minor discomfort with palpat ion of the wound area. Pelvis: Stable. Extremities: No clubbing, cyanosis, or edema. Laboratory Data: She had a laboratory exam, which revealed a white blood cell count of 9.1, hemoglob in is 11.9, hematocrit of 36.4, platelet count is 243, and her neutrophils of 61%. Her PT 12.3, INR 1.07, sodium 133, potassium 3.8, chloride 94, carbon dioxide 27, BUN 43, creatinine 2.5, glucose is 1 12, lactic acid is 1.6, calcium 9.2, and magnesium 2.3. Total bilirubin 0.5, direct bilirubin 0.2, A ST is 49, ALT 49, and alkaline phosphatase of 247. ProBNP 1873. Her lipase is 273. Procalcitonin 1 2. TSH is 4.9. UA showed positive nitrites, 3+ leukocyte esterase, white blood cells too numerous t o count, and urinary bacteria. COVID was negative. She had an abdomen and pelvis CT, which was offi cially read as anterior abdominal wall defect with exposed small bowel along the anterior abdomen. O ral contrast within the stomach reached the anterior aspect of the abdomen with most likely extravasa tion and perhaps an ileostomy on axial images. Status post rectosigmoid colon resection and reanasto mosis. Left internal ureteral stent and in good position. Slight decreased isohomogeneous attenuati on of the right hepatic lobe suspicious for fatty infiltration, less likely process could be consider ation coronary artery calcification and/or stenting. Assessment And Plan: This is a 66-year-old female with a significant large enterocutaneous fistula. 1.IV fluid hydration. 2.Antibiotic coverage. 3.We will attempt multiple measures to try to control the effluent fluid output and protect the skin from ongoing contamination and exposure to the ileal effluent using multiple different attempts. We will try barriers as well as directing the effluent into some form of bag to direct it away. In add ition, the patient will have daily cleansing and wound care. 4.I recommend n.p.o. at this point to assess the output of this fistula. 5.TPN for nutritional optimization. 6.Consideration of octreotide based on the output can be consideration if this is a high-output fist alyson. 7.I do not recommend surgical intervention at this time as she is significantly high risk for intraa bdominal complications and after reviewing her CT personally, I find that she has significant intraab dominal adhesions to the anterior abdominal wall particularly in the area where her skin is excoriate d and as such, making her prohibitively high for any elective procedure. As such, I recommend nonope rative management at this time. I have explained the risks, benefits, and alternatives of the above stated plan. I have discussed the case with Dr. Becerra about this too. We will continue ongoing wou nd care and reassess. FRACISCO/J CARLOS Voice ID: [id number] Report ID: [id number]
[2021-07-23] MEDS: PIPER TAZO 3.375 GM in NA CHLORIDE 0.9% 100 ML IV SCH ×3 (01:22→16:28)
[2021-07-23] MEDS: D5 0.9 NS 1,000 ML IV SCH ×2 (05:00→12:55)
[2021-07-23 06:18] LABS: Hematocrit 29.2 % (36.0-45.0); MPV 7.1 fL (7.6-11.3); RBC Red Blood Cell Count 3.26 M/uL (3.86-4.86)
[2021-07-23 06:38] LABS: Albumin 1.7 g/dL (3.4-5.0); Bilirubin Total 0.5 mg/dL (0.2-1.0); Magnesium 2.1 mg/dL (1.8-2.4); Phosphorus 3.9 mg/dL (2.5-4.9); Potassium 3.9 mmol/L (3.5-5.1); Protein, Total 6.7 g/dL (6.4-8.2)
--- NOTE | 2021-07-23 06:43 | P.PN ---
Subjective Date of Service: 07/23/21 Primary Care Provider: retirement doctor Chief Complaint: Abdominal wound, abdominal fistula Subjective: No new changes Physical Examination - Vital Signs Temperature: 98.0 F Blood Pressure: 136/70 Pulse: 72 Respirations: 16 Pulse Ox (%): 98 - Physical Exam General: In no apparent distress HEENT: Atraumatic, Normocephalic Neck: Supple, JVD not distended Respiratory: Clear to auscultation bilaterally Cardiovascular: No rubs, No murmurs Gastrointestinal: Soft and benign Musculoskeletal: No clubbing Integumentary: No warmth Neurological: Normal speech, Normal tone Lymphatics: No axilla or inguinal lymphadenopathy Urinary: Other (No bladder distention) External genitalia: Deferred Rectal: Deferred Assessment And Plan - Plan # TE likely 2/2 prerenal state +/- ATN from prolonged prerenal Improving Hx of L ureteral obstrxn; has L internal ureteral stent; stent exchange pending SCr 2.5 on adm, improved to 2.3 today Baseline renal fxn unknown iPTH wnl, no evidence of advanced CKD at baseline Renal US showed asymmetric-sized kidneys w/ smaller R kidney 8.7 cms CPK wnl, no rhabdo Urinalysis showed 2+ proteinuria/hematuria/pyuria +Mild proteinuria 1.2 g on random upcr Cont IV fluids Monitor I/O, renal panel # Hysterectomy c/b abdominal wall fistula Further surg eval/mngt ongoing #Abnormal LFT +Hx of cholecystectomy Lipase wnl F/u GGT # Htn Stable Cont current med regimen # DM2 Mngt per primary team # Hypothyroidism Mngt per primary team
[2021-07-23] MEDS: INSULIN -REGULAR HUMAN 50 UNIT/0.5 ML ML SQ SCH ×4 (07:30→20:11)
[2021-07-23] MEDS: FOLIC ACID 1 MG in NA CHLORIDE 0.9% 50 ML IV SCH (08:33)
[2021-07-23] MEDS: THIAMINE 200 MG/2 ML INJ IVP SCH (08:33)
[2021-07-23 11:01] LABS: Anisocytosis 1+; Blood Morphology Comment NOTED (NOT SEEN); Platelet Estimate ADEQ
--- NOTE | 2021-07-23 11:37 | P.PN ---
Subjective Date of Service: 07/23/21 Primary Care Provider: skilled nursing doctor Chief Complaint: Abdominal wound, abdominal fistula she is laying in bed, tired, fatigue, no Abd pain , no Cp or SOB, family at the bedside , she want to drink water Physical Examination - Vital Signs Temperature: 98.0 F Blood Pressure: 136/70 Pulse: 72 Respirations: 16 Pulse Ox (%): 98 Assessment & Plan Physician Review Additional Text: COVID: negative CT scan: Impression: Anterior abdominal wall defect with exposed small bowel along the anterior abdomen. Oral contrast within the stomach reached the anterior aspect of the abdomen with the most likely extravasation. Status post rectosigmoid colon resection and reanastomosis Left internal ureteral stent in good position Slightly decreased inhomogenous attenuation right hepatic lobe suspicious for fatty liver Coronary artery calcification Renal US: COMPARISON: Abdomen Pelvis Wo Contrast dated 07/22/2021 FINDINGS: The right kidney measures grossly 8.7 x 4.9 cm. The left kidney measures grossly 9.94.7 cm. Cortical thickness is normal. There is increased renal cortical echogenicity that is probably due to underlying medical renal disease. Body habitus affects and increased cortical echogenicity. No hydronephrosis or suspicious renal mass. Patient has an indwelling left ureteral stent is difficult to visualize sonographically. Bladder could not be accessed for visualization. CT study performed several hours earlier show the bladder contracted around a Bae catheter. IMPRESSION: Underlying medical renal disease is evident but no hydronephrosis and no mass lesions seen. Physical exam: General: Alert, In no apparent distress, Oriented x3 HEENT: Neck supple Respiratory: Clear to auscultation bilaterally, Normal air movement Cardiovascular: Regular rate/rhythm, Normal S1 S2 Capillary refill: <2 Seconds Gastrointestinal: Normal bowel sounds, profuse watery liquid in ostomy bag, mild Tenderness to palpation around ostomy bag Musculoskeletal: No tenderness Integumentary: Significant skin breakdown to the abdomen. Swelling, tenderness noted. Abdominal wound noted with fistula. Wound extends from below umbilicus across the entire abdomen down to the pelvic region with exposed dermis and leaking fistula noted. Neurological: Normal speech, Normal strength at 5/5 x4 extr, Normal tone, Normal affect Impression: Severe abdominal wound complicated with abdominal wall fistula with rectosigmoid colon resection/reanastomosis and prior complicated hysterectomy with complications Acute on chronic renal disease stage IV Diabetes mellitus type 2 Hypertension Hypothyroidism Plan: Severe abdominal wound complicated with abdominal wall fistula with rectosigmoid colon resection/reanastomosis and prior complicated hysterectomy with complications: Patient remains n.p.o. Surgery, plastic surgery noted, no plan for intervention, ostomy bag on top of fistula with profuse water drainage noted, and infectious disease consulted for recommendations still pending . will start TPN per surgical recommendation and keep pt NPO, nutritional consult requested as well ,no surgical intervention planned. Continue IV antibiotic therapyZosyn. will start octeriotide 50 mcg TID SC Acute on chronic renal disease stage IV: Continue IV fluids. improving , I&O, no intervention, Renal ultrasound shows medical renal disease. UTI: Continue IV antibiotic therapy with zosyn . Blood, wound, urine cultures obt ained and results penidng . Diabetes mellitus type 2: HGAIC at 5 Continue Accu-Cheks and sliding scale. Hypertension: Well controlled Hypothyroidism: Cont synthyroid 25 mcg daily u Insomnia -resume trazadone DVT PPX: SCD for now. If no intervention is planned will need to jacket changer to heparin. Code status: Full code Discharge Plan: Patient will likely require long-term acute care facility placement
--- NOTE | 2021-07-23 13:22 | P.PN ---
Subjective Date of Service: 07/23/21 Primary Care Provider: detention doctor Chief Complaint: Abdominal wound, abdominal fistula Subjective: Improving (Abdominal wound protected, ileostomy appliance in place) Physical Examination - Vital Signs Temperature: 98.6 F Blood Pressure: 104/57 Pulse: 88 Respirations: 17 Pulse Ox (%): 98 - Physical Exam General: Alert, In no apparent distress Gastrointestinal: Other (WVAC in place, ileal effluent drained) Assessment And Plan - Current Problems (Diagnosis) (1) Enterocutaneous fistula Current Visit: Yes Status: Acute Plan: - continue WVAC and current wound treatment, change WVAC 3X per week - no surgical intervention planned - will see response to TPN, octreotide for fistula output, - will consider PO after nutritional assesment, will draw nutrition labs soon Physician Review Additional Text: COVID: negative CT scan: Impression: Anterior abdominal wall defect with exposed small bowel along the anterior abdomen. Oral contrast within the stomach reached the anterior aspect of the abdomen with the most likely extravasation. Status post rectosigmoid colon resection and reanastomosis Left internal ureteral stent in good position Slightly decreased inhomogenous attenuation right hepatic lobe suspicious for fatty liver Coronary artery calcification Renal US: COMPARISON: Abdomen Pelvis Wo Contrast dated 07/22/2021 FINDINGS: The right kidney measures grossly 8.7 x 4.9 cm. The left kidney measures grossly 9.94.7 cm. Cortical thickness is normal. There is increased renal cortical echogenicity that is probably due to underlying medical renal disease. Body habitus affects and increased cortical echogenicity. No hydronephrosis or suspicious renal mass. Patient has an indwelling left ureteral stent is difficult to visualize sonographically. Bladder could not be accessed for visualization. CT study performed several hours earlier show the bladder contracted around a Bae catheter. IMPRESSION: Underlying medical renal disease is evident but no hydronephrosis and no mass lesions seen. Physical exam: General: Alert, In no apparent distress, Oriented x3 HEENT: Neck supple Respiratory: Clear to auscultation bilaterally, Normal air movement Cardiovascular: Regular rate/rhythm, Normal S1 S2 Capillary refill: <2 Seconds Gastrointestinal: Normal bowel sounds, profuse watery liquid in ostomy bag, mild Tenderness to palpation around ostomy bag Musculoskeletal: No tenderness Integumentary: Significant skin breakdown to the abdomen. Swelling, tenderness noted. Abdominal wound noted with fistula. Wound extends from below umbilicus across the entire abdomen down to the pelvic region with exposed dermis and leaking fistula noted. Neurological: Normal speech, Normal strength at 5/5 x4 extr, Normal tone, Normal affect Impression: Severe abdominal wound complicated with abdominal wall fistula with rectosigmoid colon resection/reanastomosis and prior complicated hysterectomy with complications Acute on chronic renal disease stage IV Diabetes mellitus type 2 Hypertension Hypothyroidism Plan: Severe abdominal wound complicated with abdominal wall fistula with rectosigmoid colon resection/reanastomosis and prior complicated hysterectomy with complications: Patient remains n.p.o. Surgery, plastic surgery noted, no plan for intervention, ostomy bag on top of fistula with profuse water drainage noted, and infectious disease consulted for recommendations still pending . will start TPN per surgical recommendation and keep pt NPO, nutritional consult requested as well ,no surgical intervention planned. Continue IV antibiotic therapyZosyn. will start octeriotide 50 mcg TID SC Acute on chronic renal disease stage IV: Continue IV fluids. improving , I&O, no intervention, Renal ultrasound shows medical renal disease. UTI: Continue IV antibiotic therapy with zosyn . Blood, wound, urine cultures obtained and results penidng . Diabetes mellitus type 2: HGAIC at 5 Continue Accu-Cheks and sliding scale. Hypertension: Well controlled Hypothyroidism: Cont synthyroid 25 mcg daily u Insomnia -resume trazadone DVT PPX: SCD for now. If no intervention is planned will need to exchange engineer to heparin. Code status: Full code Discharge Plan: Patient will likely require long-term acute care facility placement
[2021-07-23] MEDS: OCTREOTIDE ACETATE 100 MCG/ML IV SCH ×2 (16:23→20:12)
[2021-07-23] MEDS ORDERED: AA 5%/D20W/ELECTROLYTES-TPN 2,000 ML with MULTIVITAMINS INJ 10 ML IV SCH ×2 (17:00)
[2021-07-23] MEDS ORDERED: AA 5%/D20W/ELECTROLYTES-TPN 2,000 ML, Lipids 20% 250 ML with MULTIVITAMINS INJ 10 ML IV SCH ×3 (17:00)
[2021-07-23] MEDS: ASPIRIN 81 MG CHEWABLE TABLET PO SCH (17:14)
[2021-07-23] MEDS: TRAZODONE 50 MG TABLET PO SCH (20:08)
[2021-07-23] MEDS: ATORVASTATIN 20 MG TAB PO SCH (20:08)
[2021-07-23] MEDS: QUETIAPINE 25 MG TAB PO SCH (20:08)
[2021-07-23] MEDS: MELATONIN 5 MG TABLET PO SCH (20:08)
[2021-07-23] MEDS: DULOXETINE 30 MG CAP PO SCH (20:08)
[2021-07-23] MEDS: METOPROLOL TAR 25 MG TAB PO SCH (20:09)
[2021-07-23] MEDS: DRONABINOL 2.5 MG PO SCH (20:11)
[2021-07-24] MEDS ORDERED: NA CHLORIDE 0.9% 500 ML IV ONE (04:18)
[2021-07-24] MEDS: PIPER TAZO 3.375 GM in NA CHLORIDE 0.9% 100 ML IV SCH (04:49)
[2021-07-24] MEDS: LEVOTHYROXINE SOD 0.025 MG TAB PO SCH (05:35)
--- NOTE | 2021-07-24 06:05 | P.PN ---
Subjective Date of Service: 07/24/21 Primary Care Provider: [facility]DC doctor Chief Complaint: Abdominal wound, abdominal fistula Subjective: No new changes Physical Examination - Vital Signs Temperature: 95.8 F Blood Pressure: 91/50 Pulse: 66 Respirations: 18 Pulse Ox (%): 97 - Physical Exam General: In no apparent distress HEENT: Atraumatic, Normocephalic Neck: Supple Respiratory: Other (Symmetric chest expansion) Cardiovascular: No rubs, No murmurs Gastrointestinal: Soft and benign Musculoskeletal: No clubbing Integumentary: No warmth Neurological: Normal speech, Normal tone Lymphatics: No axilla or inguinal lymphadenopathy Urinary: Other (No bladder distention) External genitalia: Deferred Rectal: Deferred Assessment And Plan - Plan # TE likely 2/2 prerenal state +/- ATN from prolonged prerenal Improving SCr 2.5 on adm, improved to 1.9 today Baseline renal fxn unknown Hx of L ureteral obstrxn; has L internal ureteral stent; stent exchange pending iPTH wnl, no evidence of advanced CKD at baseline Renal US showed asymmetric-sized kidneys w/ smaller R kidney 8.7 cms CPK wnl, no rhabdo Urinalysis showed 2+ proteinuria/hematuria/pyuria +Mild proteinuria 1.2 g on random upcr Cont IV fluids [place] po fluid intake Monitor I/O, renal panel # Hysterectomy c/b abdominal wall fistula Further surg eval/mngt ongoing #Abnormal LFT +Hx of cholecystectomy Lipase wnl +Cholestatis w/ elevated ALP & GGT # Htn Stable Cont current med regimen # DM2 Mngt per primary team # Hypothyroidism Mngt per primary team
[2021-07-24 06:23] LABS: Absolute Lymphocytes (CBC) 0.9 K/uL (0.7-4.9); Basophils % 0.4 % (0-1.3); Lymphocytes % 20.6 % (15.3-44.8); MPV 7.6 fL (7.6-11.3); RBC Red Blood Cell Count 3.13 M/uL (3.86-4.86)
[2021-07-24 06:39] LABS: Albumin 1.5 g/dL (3.4-5.0); Bilirubin Total 0.3 mg/dL (0.2-1.0); Magnesium 2.2 mg/dL (1.8-2.4); Potassium 3.7 mmol/L (3.5-5.1); Protein, Total 6.1 g/dL (6.4-8.2)
[2021-07-24] MEDS: INSULIN -REGULAR HUMAN 50 UNIT/0.5 ML ML SQ SCH ×4 (07:30→21:00)
[2021-07-24] MEDS ORDERED: Ringers Lactate 0 ML IV ONE (08:49)
[2021-07-24] MEDS ORDERED: NA CHLORIDE 0.9% 0 ML ONE (08:51)
[2021-07-24] MEDS: DRONABINOL 2.5 MG PO SCH ×2 (09:00→21:00)
[2021-07-24] MEDS ORDERED: CALCIUM CARBONATE 500 MG PO SCH (09:00)
[2021-07-24] MEDS ORDERED: HOME MED 1 EA UNK (Levothyroxine Sodium [Levothyroxine] 25 MCG Capsule) PO SCH (09:00)
[2021-07-24] MEDS ORDERED: LOPERAMIDE HCL 2 MG CAPSULE PO PRN (10:01)
--- NOTE | 2021-07-24 10:01 | P.PN ---
Subjective Date of Service: 07/24/21 Primary Care Provider: penitentiary doctor Chief Complaint: Abdominal wound, abdominal fistula she is laying in bed, tired, fatigue, but feeling better after started on TPN, no Abd pain , no Cp or SOB, daughter at the bedside , she is NPO Physical Examination - Vital Signs Temperature: 97.2 F Blood Pressure: 103/54 Pulse: 69 Respirations: 16 Pulse Ox (%): 96 Assessment & Plan Physician Review Additional Text: COVID: negative CT scan: Impression: Anterior abdominal wall defect with exposed small bowel along the anterior abdomen. Oral contrast within the stomach reached the anterior aspect of the abdomen with the most likely extravasation. Status post rectosigmoid colon resection and reanastomosis Left internal ureteral stent in good position Slightly decreased inhomogenous attenuation right hepatic lobe suspicious for fatty liver Coronary artery calcification Renal US: COMPARISON: Abdomen Pelvis Wo Contrast dated 07/22/2021 FINDINGS: The right kidney measures grossly 8.7 x 4.9 cm. The left kidney measures grossly 9.94.7 cm. Cortical thickness is normal. There is increased renal cortical echogenicity that is probably due to underlying medical renal disease. Body habitus affects and increased cortical echogenicity. No hydronephrosis or suspicious renal mass. Patient has an indwelling left ureteral stent is difficult to visualize sonographically. Bladder could not be accessed for visualization. CT study performed several hours earlier show the bladder contracted around a Bae catheter. IMPRESSION: Underlying medical renal disease is evident but no hydronephrosis and no mass lesions seen. Physical exam: General: Alert, In no apparent distress, Oriented x3 , daughter at the bed side HEENT: Neck supple Respiratory: Clear to auscultation bilaterally, Normal air movement Cardiovascular: Regular rate/rhythm, Normal S1 S2 Capillary refill: <2 Seconds Gastrointestinal: Normal bowel sounds, profuse watery dark liquid in ostomy bag, mild Tenderness to palpation around ostomy bag Musculoskeletal: No tenderness Integumentary: Significant skin breakdown to the abdomen. Swelling, tenderness noted. Abdominal wound noted with fistula. Wound extends from below umbilicus across the entire abdomen down to the pelvic region with exposed dermis and leaking fistula noted. Neurological: Normal speech, Normal strength at 5/5 x4 extr, Normal tone, Normal affect Blood Cx showed ESBL Impression: Severe abdominal wound complicated with abdominal wall fistula with rectosigmoid colon resection/reanastomosis and prior complicated hysterectomy with complications Acute on chronic renal disease stage IV Diabetes mellitus type 2 Hypertension Hypothyroidism Plan: Severe abdominal wound complicated with abdominal wall fistula with rectosigmoid colon resection/reanastomosis and prior complicated hysterectomy with complications: Patient remains n.p.o. no plan for surgical intervention, ostomy bag on top of fistula with profuse water drainage noted, and infectious disease consulted for recommendations still pending . will cont TPN per surgical recommendation and keep pt NPO, nutritional consult requested as well , Continue IV antibiotic therapy but given CX showed ESBL will change ABX to [id number] mg Q 8 hour . will start imodium 2 mg Q 4 hours, will cont octeriotide 50 mcg TID SC Acute on chronic renal disease stage IV: better, Continue fluids TPN, . Renal ultrasound shows medical renal disease. nephrology following UTI: +ESBL, change ABX to Merropenem Diabetes mellitus type 2: HGAIC at 5 Continue Accu-Cheks and sliding scale. Hypertension: Well controlled Hypothyroidism: Cont synthyroid 25 mcg daily u Insomnia -Cont trazadone DVT PPX: SCD for now. If no intervention is planned will need to interchange agent to heparin. Anemia , thrombocytopenia -? zosyn related, will check iron profile Code status: Full code Discharge Plan: Patient will likely require long-term acute care facility placement
[2021-07-24 10:34] LABS: Ferritin 734.4 ng/mL (8-388)
[2021-07-24] MEDS: DULOXETINE 30 MG CAP PO SCH ×2 (11:26→20:42)
[2021-07-24] MEDS: THIAMINE 200 MG/2 ML INJ IVP SCH (11:26)
[2021-07-24] MEDS: OCTREOTIDE ACETATE 100 MCG/ML IV SCH ×3 (11:27→20:45)
[2021-07-24] MEDS: FOLIC ACID 1 MG in NA CHLORIDE 0.9% 50 ML IV SCH (11:27)
[2021-07-24] MEDS: CALCIUM CARBONATE 500 MG TAB PO SCH (11:27)
[2021-07-24] MEDS: DIGOXIN 0.25 MG TABLET PO SCH (11:27)
[2021-07-24] MEDS ORDERED: AA 5%/D20W/ELECTROLYTES-TPN 2,000 ML, Lipids 20% 250 ML with MULTIVITAMINS INJ 10 ML IV SCH ×3 (17:00)
[2021-07-24] MEDS: ASPIRIN 81 MG CHEWABLE TABLET PO SCH (17:32)
[2021-07-24] MEDS: Meropenem 500 MG/100 ML BAG IV SCH (20:40)
[2021-07-24] MEDS: QUETIAPINE 25 MG TAB PO SCH (20:41)
[2021-07-24] MEDS: MELATONIN 5 MG TABLET PO SCH (20:42)
[2021-07-24] MEDS: ATORVASTATIN 20 MG TAB PO SCH (20:42)
[2021-07-24] MEDS: TRAZODONE 50 MG TABLET PO SCH (20:42)
[2021-07-25] MEDS: LEVOTHYROXINE SOD 0.025 MG TAB PO SCH (06:13)
--- NOTE | 2021-07-25 06:13 | P.PN ---
Subjective Date of Service: 07/25/21 Primary Care Provider: alf doctor Chief Complaint: Abdominal wound, abdominal fistula Subjective: No new changes Physical Examination - Vital Signs Temperature: 97 F Blood Pressure: 117/65 Pulse: 68 Respirations: 19 Pulse Ox (%): 99 - Physical Exam General: In no apparent distress HEENT: Atraumatic, Normocephalic Neck: Supple Respiratory: Clear to auscultation bilaterally Cardiovascular: No rubs, No murmurs Gastrointestinal: Guarding Musculoskeletal: No clubbing Integumentary: No warmth Neurological: Normal speech, Normal tone Urinary: Other (No bladder distention) Assessment And Plan - Plan # TE likely 2/2 prerenal state +/- ATN from prolonged prerenal Improving SCr 2.5 on adm, improved to 1.3 today Baseline renal fxn unknown Hx of L ureteral obstrxn; has L internal ureteral stent; stent exchange pending iPTH wnl, no evidence of advanced CKD at baseline Renal US showed asymmetric-sized kidneys w/ smaller R kidney 8.7 cms CPK wnl, no rhabdo Urinalysis showed 2+ proteinuria/hematuria/pyuria +Mild proteinuria 1.2 g on random upcr Cont IV fluids [place] po fluid intake Monitor I/O, renal panel # Hysterectomy c/b abdominal wall fistula Further surg eval/mngt ongoing #Abnormal LFT +Hx of cholecystectomy Lipase wnl +Cholestatis w/ elevated ALP & GGT # Htn Stable Cont current med regimen # DM2 Mngt per primary team # Hypothyroidism Mngt per primary team Physician Review Additional Text: COVID: negative CT scan: Impression: Anterior abdominal wall defect with exposed small bowel along the anterior abdomen. Oral contrast within the stomach reached the anterior aspect of the abdomen with the most likely extravasation. Status post rectosigmoid colon resection and reanastomosis Left internal ureteral stent in good position Slightly decreased inhomogenous attenuation right hepatic lobe suspicious for fatty liver Coronary artery calcification Renal US: COMPARISON: Abdomen Pelvis Wo Contrast dated 07/22/2021 FINDINGS: The right kidney measures grossly 8.7 x 4.9 cm. The left kidney measures grossly 9.94.7 cm. Cortical thickness is normal. There is increased renal cortical echogenicity that is probably due to underlying medical renal disease. Body habitus affects and increased cortical echogenicity. No hydronephrosis or suspicious renal mass. Patient has an indwelling left ureteral stent is difficult to visualize sonographically. Bladder could not be accessed for visualization. CT study performed several hours earlier show the bladder contracted around a Bae catheter. IMPRESSION: Underlying medical renal disease is evident but no hydronephrosis and no mass lesions seen. Physical exam: General: Alert, In no apparent distress, Oriented x3 , daughter at the bed side HEENT: Neck supple Respiratory: Clear to auscultation bilaterally, Normal air movement Cardiovascular: Regular rate/rhythm, Normal S1 S2 Capillary refill: <2 Seconds Gastrointestinal: Normal bowel sounds, profuse watery dark liquid in ostomy bag, mild Tenderness to palpation around ostomy bag Musculoskeletal: No tenderness Integumentary: Significant skin breakdown to the abdomen. Swelling, tenderness noted. Abdominal wound noted with fistula. Wound extends from below umbilicus across the entire abdomen down to the pelvic region with exposed dermis and leaking fistula noted. Neurological: Normal speech, Normal strength at 5/5 x4 extr, Normal tone, Normal affect Blood Cx showed ESBL Impression: Severe abdominal wound complicated with abdominal wall fistula with rectosigmoid colon resection/reanastomosis and prior complicated hysterectomy with complications Acute on chronic renal disease stage IV Diabetes mellitus type 2 Hypertension Hypothyroidism Plan: Severe abdominal wound complicated with abdominal wall fistula with rectosigmoid colon resection/reanastomosis and prior complicated hysterectomy with complications: Patient remains n.p.o. no plan for surgical intervention, ostomy bag on top of fistula with profuse water drainage noted, and infectious disease consulted for recommendations still pending . will cont TPN per surgical recommendation and keep pt NPO, nutritional consult requested as well , Continue IV antibiotic therapy but given CX showed ESBL will change ABX to [id number] mg Q 8 hour . will start imodium 2 mg Q 4 hours, will cont octeriotide 50 mcg TID SC Acute on chronic renal disease stage IV: better, Continue fluids TPN, . Renal ultrasound shows medical renal disease. nephrology following UTI: +ESBL, change ABX to Merropenem Diabetes mellitus type 2: HGAIC at 5 Continue Accu-Cheks and sliding scale. Hypertension: Well controlled Hypothyroidism: Cont synthyroid 25 mcg daily u Insomnia -Cont trazadone DVT PPX: SCD for now. If no intervention is planned will need to meter changes records clerk to heparin. Anemia , thrombocytopenia -? zosyn related, will check iron profile Code status: Full code Discharge Plan: Patient will likely require long-term acute care facility placement
[2021-07-25 06:36] LABS: Absolute Lymphocytes (CBC) 1.7 K/uL (0.7-4.9); Basophils % 0.5 % (0-1.3); Hematocrit 28.3 % (36.0-45.0); MPV 7.9 fL (7.6-11.3); RBC Red Blood Cell Count 3.08 M/uL (3.86-4.86)
[2021-07-25 07:02] LABS: Albumin 1.5 g/dL (3.4-5.0); Bilirubin Total 0.2 mg/dL (0.2-1.0); Magnesium 2.4 mg/dL (1.8-2.4); Potassium 3.8 mmol/L (3.5-5.1); Protein, Total 6.2 g/dL (6.4-8.2)
[2021-07-25] MEDS: INSULIN -REGULAR HUMAN 50 UNIT/0.5 ML ML SQ SCH ×4 (07:30→21:00)
[2021-07-25] MEDS: THIAMINE 200 MG/2 ML INJ IVP SCH (08:42)
[2021-07-25] MEDS: CALCIUM CARBONATE 500 MG TAB PO SCH (08:42)
[2021-07-25] MEDS: OCTREOTIDE ACETATE 100 MCG/ML IV SCH ×3 (08:42→20:58)
[2021-07-25] MEDS: FOLIC ACID 1 MG in NA CHLORIDE 0.9% 50 ML IV SCH (08:42)
[2021-07-25] MEDS: Meropenem 500 MG/100 ML BAG IV SCH ×2 (08:42→21:00)
[2021-07-25] MEDS: DIGOXIN 0.25 MG TABLET PO SCH (08:43)
[2021-07-25] MEDS: DULOXETINE 30 MG CAP PO SCH ×2 (08:43→20:59)
[2021-07-25] MEDS: METOPROLOL TAR 25 MG TAB PO SCH ×2 (08:43→20:58)
[2021-07-25] MEDS: DRONABINOL 2.5 MG PO SCH ×2 (08:44→21:00)
--- NOTE | 2021-07-25 10:44 | P.PN ---
Subjective Date of Service: 07/25/21 Primary Care Provider: [facility] doctor Chief Complaint: Abdominal wound, abdominal fistula she is laying in bed, feeling better, on TPN no Abd pain , no Cp or SOB, still NPO, still with profuse outpt from her fistula Physical Examination - Vital Signs Temperature: 97 F Blood Pressure: 112/63 Pulse: 64 Respirations: 15 Pulse Ox (%): 95 - Studies Microbiology Data (last 24 hrs): 07/22/21 00:35 Catheterized Urine [place] Count - Final >100,000 CFU/ML. 07/22/21 00:35 Catheterized Urine - Final Escherichia Coli Klebsiella Pneumoniae Esbl Gram Neg Jadon Assessment & Plan Physician Review Additional Text: COVID: negative CT scan: Impression: Anterior abdominal wall defect with exposed small bowel along the anterior abdomen. Oral contrast within the stomach reached the anterior aspect of the abdomen with the most likely extravasation. Status post rectosigmoid colon resection and reanastomosis Left internal ureteral stent in good position Slightly decreased inhomogenous attenuation right hepatic lobe suspicious for fatty liver Coronary artery calcification Renal US: COMPARISON: Abdomen Pelvis Wo Contrast dated 07/22/2021 FINDINGS: The right kidney measures grossly 8.7 x 4.9 cm. The left kidney measures grossly 9.94.7 cm. Cortical thickness is normal. There is increased renal cortical echogenicity that is probably due to underlying medical renal disease. Body habitus affects and increased cortical echogenicity. No hydronephrosis or suspicious renal mass. Patient has an indwelling left ureteral stent is difficult to visualize sonographically. Bladder could not be accessed for visualization. CT study performed several hours earlier show the bladder contracted around a Bae catheter. IMPRESSION: Underlying medical renal disease is evident but no hydronephrosis and no mass lesions seen. Physical exam: General: Alert, In no apparent distress, Oriented x3 , daughter at the bed side HEENT: Neck supple Respiratory: Clear to auscultation bilaterally, Normal air movement Cardiovascular: Regular rate/rhythm, Normal S1 S2 Capillary refill: <2 Seconds Gastrointestinal: Normal bowel sounds, profuse watery dark liquid in ostomy bag, mild Tenderness to palpation around ostomy bag Musculoskeletal: No tenderness Integumentary: Significant skin breakdown to the abdomen. Swelling, tenderness noted. Abdominal wound noted with fistula. Wound extends from below umbilicus across the entire abdomen down to the pelvic region with exposed dermis and leaking fistula noted. Neurological: Normal speech, Normal strength at 5/5 x4 extr, Normal tone, Normal affect Blood Cx showed ESBL Impression: Severe abdominal wound complicated with abdominal wall fistula with rectosigmoid colon resection/reanastomosis and prior complicated hysterectomy with complications Acute on chronic renal disease stage IV Diabetes mellitus type 2 Hypertension Hypothyroidism Plan: Severe abdominal wound complicated with abdominal wall fistula with rectosigmoid colon resection/reanastomosis and prior complicated hysterectomy with complications: Patient remains n.p.o. no plan for surgical intervention, ostomy bag on top of fistula with profuse water drainage noted, and infectious disease consulted for recommendations still pending . will cont TPN per surgical recommendation and keep pt NPO, nutritional consult requested as well , Continue IV antibiotic therapy but given CX showed ESBL will change ABX to [id number] mg Q 8 hour . will increase imodium 2 mg Q 2 hours, I will increase octeriotide 75 mcg TID SC Acute on chronic renal disease stage IV: much better Cr below2, Continue fluids TPN, . Renal ultrasound shows medical renal disease. nephrology following UTI: +ESBL, change ABX to Merropenem yesterday Diabetes mellitus type 2: HGAIC at 5 Continue Accu-Cheks and sliding scale. Hypertension: Well controlled Hypothyroidism: Cont synthyroid 25 mcg daily u Insomnia -Cont trazadone DVT PPX: SCD for now. If no intervention is planned will need to pipe changer to heparin. Anemia -? zosyn related, iron profile consistent with anemia of chronic disease Thrombocytopenia -Better off zoysn Code status: Full code Discharge Plan: Patient will likely require long-term acute care facility placement
[2021-07-25] MEDS: LOPERAMIDE HCL 2 MG CAPSULE PO PRN (13:22)
--- NOTE | 2021-07-25 15:45 | CON ---
Date of Consultation: 07/25/2021 Reason For Consultation: Short run of ventricular tachycardia that is not sustained. History Of Present Illness: This is a 66-year-old female, who has been on TPN due to significant abd ominal fistula and abdominal wound. Has been in the hospital for few days, been in n.p.o. status. S he had a run of V-tach on telemetry, self-terminated was about 13 beats. The patient was evaluated b y bedside. She had no symptoms of any chest pain or dizziness or syncope. There is no shortness of breath. She denies any cardiac history. Past Medical History: Hypertension, hypothyroidism, diabetes. Medications: Refer reconciliation sheet for detailed list. Allergies: NO KNOWN DRUG ALLERGIES. Family History: No mature coronary artery disease. Social History: She does not smoke or drink. Does not use any drugs. Review of Systems: All systems reviewed and they were negative except as mentioned in HPI. Physical Examination: Vital Signs: Temperature is 97.3, pulse 63, breathing at 15, blood pressure 127/65, saturating 95% o n room air. General: Pleasant middle-aged female, in no apparent distress. Head and Neck: Pupils are equal, reactive to light. Intact eye movements. No JVD. No cervical nelson nopathy. Neck is supple. Thyroid is not enlarged. Lungs: Clear to auscultation bilaterally. No rhonchi, rales, or crackles. No accessory muscle use. Heart: Regular rate and rhythm. No extra sounds. Abdomen: Abdominal wall wound and cellulitis. Extremities: Trace edema. No clubbing, cyanosis. Skin: No rashes. Neurologic: Alert, awake, oriented x3. No acute events. Investigations: Sodium 141, potassium was 3.8, and creatinine 1.32. Magnesium level was 2.4. Assessment And Recommendation: Short run of ventricular tachycardia. This could be due to the overa ll illness and being on TPN, however, electrolytes checked out okay. Please obtain troponin and an e chocardiogram and I will follow the patient with you. Further recommendations based on the above wor kup. SR/MODL Voice ID: [id number] Report ID: [id number]
[2021-07-25] MEDS: MORPHINE 2 MG/ML SYR IV PRN (17:39)
[2021-07-25] MEDS: AA 5%/D20W/ELECTROLYTES-TPN 2,000 ML with MULTIVITAMINS INJ 10 ML IV SCH ×2 (17:40)
[2021-07-25] MEDS: ASPIRIN 81 MG CHEWABLE TABLET PO SCH (17:43)
[2021-07-25] MEDS: TRAZODONE 50 MG TABLET PO SCH (20:58)
[2021-07-25] MEDS: ATORVASTATIN 20 MG TAB PO SCH (20:59)
[2021-07-25] MEDS: MELATONIN 5 MG TABLET PO SCH (20:59)
[2021-07-25] MEDS: QUETIAPINE 25 MG TAB PO SCH (20:59)
[2021-07-26 05:49] LABS: Albumin 1.4 g/dL (3.4-5.0); Bilirubin Total 0.2 mg/dL (0.2-1.0); Potassium 3.6 mmol/L (3.5-5.1)
[2021-07-26] MEDS: LEVOTHYROXINE SOD 0.025 MG TAB PO SCH (06:07)
--- NOTE | 2021-07-26 06:23 | P.PN ---
Subjective Date of Service: 07/27/21 Primary Care Provider: senior living doctor Chief Complaint: Abdominal wound, abdominal fistula Subjective: No new changes Physical Examination - Vital Signs Temperature: 97 F Blood Pressure: 117/65 Pulse: 68 Respirations: 19 Pulse Ox (%): 99 - Physical Exam General: In no apparent distress HEENT: Atraumatic, Normocephalic Neck: Supple Respiratory: Clear to auscultation bilaterally Cardiovascular: No rubs, No murmurs Gastrointestinal: No guarding Musculoskeletal: No clubbing Integumentary: No warmth Neurological: Normal speech, Normal tone Urinary: Other (No bladder distention) External genitalia: Deferred Rectal: Deferred - Studies Microbiology Data (last 24 hrs): 07/22/21 00:35 Catheterized Urine [place] Count - Final >100,000 CFU/ML. 07/22/21 00:35 Catheterized Urine - Final Escherichia Coli Klebsiella Pneumoniae Esbl Gram Neg Jadon Assessment And Plan - Plan # TE likely 2/2 prerenal state +/- ATN from prolonged prerenal Improving SCr 2.5 on adm, improved to 1.1 today Baseline renal fxn unknown Hx of L ureteral obstrxn; has L internal ureteral stent; stent exchange pending iPTH wnl, no evidence of advanced CKD at baseline Renal US showed asymmetric-sized kidneys w/ smaller R kidney 8.7 cms CPK wnl, no rhabdo Urinalysis showed 2+ proteinuria/hematuria/pyuria +Mild proteinuria 1.2 g on random upcr Cont IV fluids/TPN [place] po fluid intake Monitor I/O, renal panel # Hysterectomy c/b abdominal wall fistula Surg eval/mngt ongoing # Abnormal LFT +Hx of cholecystectomy Lipase wnl +Cholestatis w/ elevated ALP & GGT # Htn Stable Cont current med regimen # Hypercalcemia Mild, monitor # DM2 Mngt per primary team # Hypothyroidism Mngt per primary team
[2021-07-26] MEDS: INSULIN -REGULAR HUMAN 50 UNIT/0.5 ML ML SQ SCH ×4 (07:30→16:30)
[2021-07-26] MEDS: DRONABINOL 2.5 MG PO SCH ×2 (09:00→21:00)
[2021-07-26] MEDS: METOPROLOL TAR 25 MG TAB PO SCH ×2 (09:00→21:58)
[2021-07-26] MEDS: OCTREOTIDE ACETATE 100 MCG/ML IV SCH ×3 (09:00→22:01)
[2021-07-26] MEDS: CALCIUM CARBONATE 500 MG TAB PO SCH (09:29)
[2021-07-26] MEDS: DULOXETINE 30 MG CAP PO SCH ×2 (09:30→21:58)
[2021-07-26] MEDS: FOLIC ACID 1 MG in NA CHLORIDE 0.9% 50 ML IV SCH (09:31)
[2021-07-26] MEDS: Meropenem 500 MG/100 ML BAG IV SCH ×2 (09:31→21:57)
[2021-07-26] MEDS: THIAMINE 200 MG/2 ML INJ IVP SCH (09:32)
[2021-07-26] MEDS: DIGOXIN 0.25 MG TABLET PO SCH (09:39)
--- NOTE | 2021-07-26 09:44 | P.PN ---
Subjective Date of Service: 07/26/21 Primary Care Provider: senior care doctor Chief Complaint: Abdominal wound, abdominal fistula she is laying in bed, feeling same, on TPN no Abd pain , no Cp or SOB, still NPO, still with profuse outpt from her fistula, there is some issues with wound vac, pending wound team eval Physical Examination - Vital Signs Temperature: 97 F Blood Pressure: 107/56 Pulse: 60 Respirations: 16 Pulse Ox (%): 95 - Studies Microbiology Data (last 24 hrs): 07/22/21 00:35 Catheterized Urine [place] Count - Final >100,000 CFU/ML. 07/22/21 00:35 Catheterized Urine - Final Escherichia Coli Klebsiella Pneumoniae Esbl Gram Neg Jadon Assessment & Plan Physician Review Additional Text: COVID: negative CT scan: Impression: Anterior abdominal wall defect with exposed small bowel along the anterior abdomen. Oral contrast within the stomach reached the anterior aspect of the abdomen with the most likely extravasation. Status post rectosigmoid colon resection and reanastomosis Left internal ureteral stent in good position Slightly decreased inhomogenous attenuation right hepatic lobe suspicious for fatty liver Coronary artery calcification Renal US: COMPARISON: Abdomen Pelvis Wo Contrast dated 07/22/2021 FINDINGS: The right kidney measures grossly 8.7 x 4.9 cm. The left kidney measures grossly 9.94.7 cm. Cortical thickness is normal. There is increased renal cortical echogenicity that is probably due to underlying medical renal disease. Body habitus affects and increased cortical echogenicity. No hydronephrosis or suspicious renal mass. Patient has an indwelling left ureteral stent is difficult to visualize sonographically. Bladder could not be accessed for visualization. CT study performed several hours earlier show the bladder contracted around a Bae catheter. IMPRESSION: Underlying medical renal disease is evident but no hydronephrosis and no mass lesions seen. Physical exam: General: Alert, In no apparent distress, Oriented x3 , daughter at the bed side HEENT: Neck supple Respiratory: Clear to auscultation bilaterally, Normal air movement Cardiovascular: Regular rate/rhythm, Normal S1 S2 Capillary refill: <2 Seconds Gastrointestinal: Normal bowel sounds, profuse watery dark liquid in ostomy bag, mild Tenderness to palpation around ostomy bag Musculoskeletal: No tenderness Integumentary: Significant skin breakdown to the abdomen. Swelling, tenderness noted. Abdominal wound noted with fistula. Wound extends from below umbilicus across the entire abdomen down to the pelvic region with exposed dermis and leaking fistula noted. Neurological: Normal speech, Normal strength at 5/5 x4 extr, Normal tone, Normal affect Blood Cx showed ESBL Impression: Severe abdominal wound complicated with abdominal wall fistula with rectosigmoid colon resection/reanastomosis and prior complicated hysterectomy with complications Acute on chronic renal disease stage IV Diabetes mellitus type 2 Hypertension Hypothyroidism Plan: Severe abdominal wound complicated with abdominal wall fistula with rectosigmoid colon resection/reanastomosis and prior complicated hysterectomy with complications: Patient cont to be n.p.o. no plan for surgical intervention, ostomy bag on top of fistula with profuse watery drainage noted, and ID consult advised to cont zosyn but we have to switch to [id number] mg due to ESBL , will cont TPN per surgical recommendation and keep pt NPO, nutritional consult requested to follow pt in am, cont imodium 2 mg Q 4 hours, Octeriotide 75 mcg TID Acute on chronic renal disease stage IV: resovled with Hydration and TPN, Cr back to nl Renal ultrasound shows medical renal disease. nephrology following UTI: +ESBL, change ABX to Merropenem yesterday Diabetes mellitus type 2: HGAIC at 5 Continue Accu-Cheks and sliding scale. Hypertension: Well controlled Hypothyroidism: Cont synthyroid 25 mcg daily u Insomnia -Cont trazadone DVT PPX: SCD for now. If no intervention is planned will need to cell changer to heparin. Anemia -? zosyn related, iron profile consistent with anemia of chronic disease Thrombocytopenia -Better off zoysn Code status: in. Code status: Full code Discharge Plan: Patient will likely require long-term acute care facility placement at [place] after wound care eval in am and if surgery ok , paper work all faxed to [facility]
--- NOTE | 2021-07-26 13:56 | PN ---
Date of Progress Note: 07/26/2021 Subjective: Seen by bedside. No cardiac complaints. Review of Systems: No chest pain, shortness of breath, orthopnea, or cough. No nausea, vomiting, and diarrhea. All oth er systems were reviewed and are negative. Physical Examination: Vital Signs: Reviewed. Head and Neck: Pupils are equal, reactive to light. No JVD. No cervical adenopathy. Neck: Supple. Thyroid not enlarged. Lungs: Clear to auscultation bilaterally. No rhonchi, rales, or crackles. No accessory muscle use. Heart: Regular rate and rhythm. No extra sounds. Abdomen: Soft with wound infection. Extremities: No clubbing or cyanosis. Intact pulses. Skin: No rashes. Neurologic: Alert, awake. No acute focal deficits appreciated. Investigations: Potassium 3.6, magnesium 2.0. Assessment And Recommendations: Short run of ventricular tachycardia, asymptomatic. Troponins were checked and they were negative. Await on echocardiogram to evaluate the heart structure and also ple ase make sure that the potassium is above 4 and magnesium above is 2 at all time as the patient is on TPN short run of ventricular tachycardia. SR/MODL Voice ID: [id number] Report ID: [id number]
[2021-07-26] MEDS: AA 5%/D20W/ELECTROLYTES-TPN 2,000 ML with MULTIVITAMINS INJ 10 ML IV SCH ×2 (16:33)
[2021-07-26] MEDS: ASPIRIN 81 MG CHEWABLE TABLET PO SCH (17:12)
[2021-07-26] MEDS: ATORVASTATIN 20 MG TAB PO SCH (21:58)
[2021-07-26] MEDS: TRAZODONE 50 MG TABLET PO SCH (21:58)
[2021-07-26] MEDS: QUETIAPINE 25 MG TAB PO SCH (21:58)
[2021-07-26] MEDS: MELATONIN 5 MG TABLET PO SCH (23:05)
[2021-07-27 00:04] VITALS: O2SAT 96
[2021-07-27] MEDS: LEVOTHYROXINE SOD 0.025 MG TAB PO SCH (05:57)
[2021-07-27] MEDS: LOPERAMIDE HCL 2 MG CAPSULE PO PRN (05:57)
[2021-07-27] MEDS: INSULIN -REGULAR HUMAN 50 UNIT/0.5 ML ML SQ SCH ×3 (06:00→17:58)
[2021-07-27 06:27] LABS: Absolute Lymphocytes (CBC) 2.5 K/uL (0.7-4.9); Basophils % 2.5 % (0-1.3); Hematocrit 27.8 % (36.0-45.0); Lymphocytes % 35.8 % (15.3-44.8); RBC Red Blood Cell Count 3.12 M/uL (3.86-4.86)
[2021-07-27 06:45] LABS: Albumin 1.6 g/dL (3.4-5.0); Bilirubin Total 0.2 mg/dL (0.2-1.0); Magnesium 2.2 mg/dL (1.8-2.4); Potassium 3.8 mmol/L (3.5-5.1); Protein, Total 6.1 g/dL (6.4-8.2)
[2021-07-27 07:43] LABS: Blood Morphology Comment NOT SEEN (NOT SEEN); Platelet Estimate ADEQ
--- NOTE | 2021-07-27 08:18 | P.PN ---
Subjective Date of Service: 07/27/21 Primary Care Provider: snf doctor Chief Complaint: Abdominal wound, abdominal fistula Subjective: Worsening (WVAC leaked, dressing applied, soiling of skin from EC Fistula) Physical Examination - Vital Signs Temperature: 97 F Blood Pressure: 117/65 Pulse: 68 Respirations: 19 Pulse Ox (%): 99 - Physical Exam General: Alert, In no apparent distress, Cooperative Respiratory: Normal air movement Cardiovascular: Regular rate/rhythm Integumentary: Other (excoriated skin to LEFT abdominal wall, fistulas continue to drain, ostomy appliances leaking) Assessment And Plan - Current Problems (Diagnosis) (1) Enterocutaneous fistula Current Visit: Yes Status: Acute Plan: - continue WVAC and current wound treatment, change WVAC 3X per week - no surgical intervention planned - will see response to TPN, octreotide for fistula output, - will consider PO after nutritional assesment, will draw nutrition labs soon Physician Review Additional Text: COVID: negative CT scan: Impression: Anterior abdominal wall defect with exposed small bowel along the anterior abdomen. Oral contrast within the stomach reached the anterior aspect of the abdomen with the most likely extravasation. Status post rectosigmoid colon resection and reanastomosis Left internal ureteral stent in good position Slightly decreased inhomogenous attenuation right hepatic lobe suspicious for fatty liver Coronary artery calcification Renal US: COMPARISON: Abdomen Pelvis Wo Contrast dated 07/22/2021 FINDINGS: The right kidney measures grossly 8.7 x 4.9 cm. The left kidney measures grossly 9.94.7 cm. Cortical thickness is normal. There is increased renal cortical echogenicity that is probably due to underlying medical renal disease. Body habitus affects and increased cortical echogenicity. No hydronephrosis or suspicious renal mass. Patient has an indwelling left ureteral stent is difficult to visualize sonographically. Bladder could not be accessed for visualization. CT study performed several hours earlier show the bladder contracted around a Bae catheter. IMPRESSION: Underlying medical renal disease is evident but no hydronephrosis and no mass lesions seen. Physical exam: General: Alert, In no apparent distress, Oriented x3 , daughter at the bed side HEENT: Neck supple Respiratory: Clear to auscultation bilaterally, Normal air movement Cardiovascular: Regular rate/rhythm, Normal S1 S2 Capillary refill: <2 Seconds Gastrointestinal: Normal bowel sounds, profuse watery dark liquid in ostomy bag, mild Tenderness to palpation around ostomy bag Musculoskeletal: No tenderness Integumentary: Significant skin breakdown to the abdomen. Swelling, tenderness noted. Abdominal wound noted with fistula. Wound extends from below umbilicus across the entire abdomen down to the pelvic region with exposed dermis and leaking fistula noted. Neurological: Normal speech, Normal strength at 5/5 x4 extr, Normal tone, Normal affect Blood Cx showed ESBL Impression: Severe abdominal wound complicated with abdominal wall fistula with rectosigmoid colon resection/reanastomosis and prior complicated hysterectomy with complications Acute on chronic renal disease stage IV Diabetes mellitus type 2 Hypertension Hypothyroidism Plan: Severe abdominal wound complicated with abdominal wall fistula with rectosigmoid colon resection/reanastomosis and prior complicated hysterectomy with complications: Patient cont to be n.p.o. no plan for surgical intervention, ostomy bag on top of fistula with profuse watery drainage noted, and ID consult advised to cont zosyn but we have to switch to [id number] mg due to ESBL , will cont TPN per surgical recommendation and keep pt NPO, nutritional consult requested to follow pt in am, cont imodium 2 mg Q 4 hours, Octeriotide 75 mcg TID Acute on chronic renal disease stage IV: resovled with Hydration and TPN, Cr back to nl Renal ultrasound shows medical renal disease. nephrology following UTI: +ESBL, change ABX to Merropenem yesterday Diabetes mellitus type 2: HGAIC at 5 Continue Accu-Cheks and sliding scale. Hypertension: Well controlled Hypothyroidism: Cont synthyroid 25 mcg daily u Insomnia -Cont trazadone DVT PPX: SCD for now. If no intervention is planned will need to currency exchange specialist to heparin. Anemia -? zosyn related, iron profile consistent with anemia of chronic disease Thrombocytopenia -Better off zoysn Code status: in. Code status: Full code Discharge Plan: Patient will likely require long-term acute care facility placement at [facility] after wound care eval in am and if surgery ok , paper work all faxed to [facility]
[2021-07-27] MEDS: DRONABINOL 2.5 MG PO SCH ×2 (08:48→21:00)
[2021-07-27] MEDS: OCTREOTIDE ACETATE 100 MCG/ML IV SCH ×3 (09:13→21:00)
[2021-07-27] MEDS: THIAMINE 200 MG/2 ML INJ IVP SCH (09:13)
[2021-07-27] MEDS: CALCIUM CARBONATE 500 MG TAB PO SCH (09:14)
[2021-07-27] MEDS: METOPROLOL TAR 25 MG TAB PO SCH ×2 (09:15→21:24)
[2021-07-27] MEDS: FOLIC ACID 1 MG in NA CHLORIDE 0.9% 50 ML IV SCH (09:15)
[2021-07-27] MEDS: DIGOXIN 0.25 MG TABLET PO SCH (09:15)
[2021-07-27] MEDS: DULOXETINE 30 MG CAP PO SCH ×2 (09:15→21:24)
[2021-07-27] MEDS: Meropenem 500 MG/100 ML BAG IV SCH ×2 (09:16→21:25)
[2021-07-27] MEDS: MORPHINE 2 MG/ML SYR IV PRN ×2 (10:46→18:01)
--- NOTE | 2021-07-27 14:50 | P.PN ---
Subjective Date of Service: 07/27/21 Primary Care Provider: penitentiary doctor Chief Complaint: Abdominal wound, abdominal fistula Patient seen examined at bedside, denies nausea/vomiting/diarrhea. Abdominal wall still shows severe excoriation/erosion due to draining enteric cutaneous fistula. Patient NPO, on TPN. Lb when goal of greater than or equal to 4 mg/dl. Review of Systems 10-point ROS is otherwise unremarkable Physical Examination - Vital Signs Temperature: 97.1 F Blood Pressure: 129/69 Pulse: 59 Respirations: 16 Pulse Ox (%): 97 - Studies Laboratory Last Values WBC 9.10 K/uL (4.3-10.9) 07/21/21 23:10 RBC 4.06 M/uL (3.86-4.86) 07/21/21 23:10 Hgb 11.9 g/dL (12.0-15.0) L 07/21/21 23:10 Hct 36.4 % (36.0-45.0) 07/21/21 23:10 MCV 89.6 fL (80-100) 07/21/21 23:10 MCH 29.3 pg (27.0-35.0) 07/21/21 23:10 MCHC 32.7 g/dL (32.0-36.0) 07/21/21 23:10 RDW 16.8 % (12.1-15.2) H 07/21/21 23:10 Plt Count 243 K/uL (152-406) 07/21/21 23:10 MPV 7.2 fL (7.6-11.3) L 07/21/21 23:10 Neutrophils % 61.0 % (41.7-73.7) 07/21/21 23:10 Lymphocytes % 32.7 % (15.3-44.8) 07/21/21 23:10 Monocytes % 5.1 % (3.3-12.3) 07/21/21 23:10 Eosinophils % 0.8 % (0-4.4) 07/21/21 23:10 Basophils % 0.4 % (0-1.3) 07/21/21 23:10 Absolute Neutrophils 5.5 K/uL (1.8-8.0) 07/21/21 23:10 Absolute Lymphocytes 3.0 K/uL (0.7-4.9) 07/21/21 23:10 Absolute Monocytes 0.5 K/uL (0.1-1.3) 07/21/21 23:10 Absolute Eosinophils 0.1 K/uL (0-0.5) 07/21/21 23:10 Absolute Basophils 0.0 K/uL (0-0.5) 07/21/21 23:10 PT 12.3 SECONDS (9.5-12.5) 07/21/21 23:10 INR 1.07 07/21/21 23:10 Sodium 133 mmol/L (136-145) L 07/21/21 23:10 Potassium 3.8 mmol/L (3.5-5.1) 07/21/21 23:10 Chloride 94 mmol/L (98-107) L 07/21/21 23:10 Carbon Dioxide 27 mmol/L (21-32) 07/21/21 23:10 BUN 43 mg/dL (7-18) H 07/21/21 23:10 Creatinine 2.52 mg/dL (0.55-1.3) H 07/21/21 23:10 Estimated GFR 19 mL/min (=/>90) L 07/21/21 23:10 Glucose 112 mg/dL (74-106) H 07/21/21 23:10 Lactic Acid 1.6 mmol/L (0.4-2.0) 07/21/21 23:10 Uric Acid 13.6 mg/dL (2.6-6.0) H 07/22/21 00:00 Calcium 9.2 mg/dL (8.5-10.1) 07/21/21 23:10 Magnesium 2.3 mg/dL (1.8-2.4) 07/21/21 23:10 Total Bilirubin 0.5 mg/dL (0.2-1.0) 07/21/21 23:10 Direct Bilirubin 0.2 mg/dL (0-0.2) 07/21/21 23:10 AST 69 U/L (15-37) H 07/21/21 23:10 ALT 49 U/L (12-78) 07/21/21 23:10 Alkaline Phosphatase 247 U/L (45-117) H 07/21/21 23:10 Rapid Troponin I < 0.02 ng/mL (0.0-0.045) 07/21/21 23:10 NT-Pro-B Natriuret Pep 1873 pg/mL (<125) H 07/21/21 23:10 Serum Total Protein 8.1 g/dL (6.4-8.2) 07/21/21 23:10 Albumin 2.3 g/dL (3.4-5.0) L 07/21/21 23:10 Globulin 5.8 g/dL (2.3-3.5) H 07/21/21 23:10 Albumin/Globulin Ratio 0.4 (1.1-1.8) L 07/21/21 23:10 Lipase 273 U/L (73-393) 07/21/21 23:10 Procalcitonin 12.43 ng/mL (<0.050) H 07/22/21 00:00 TSH 4.980 uIU/mL (0.360-3.740) H 07/22/21 00:00 Free T4 1.37 ng/dL (0.76-1.46) 07/22/21 00:00 Urine pH 7.0 (5.0-7.0) 07/22/21 00:33 Ur Specific [place] 1.015 (1.005-1.030) 07/22/21 00:33 Glucose (UA)(Auto) Negative (Negative) 07/22/21 00:33 Urine Ketones Negative (Negative) 07/22/21 00:33 Urine Blood 3+ (Negative) H 07/22/21 00:33 Urine Nitrite Positive (Negative) H 07/22/21 00:33 Ur Leukocyte Esterase 3+ (Negative) H 07/22/21 00:33 Urine RBC 20-50 /HPF (NONE SEEN) H 07/22/21 00:35 Urine WBC Tntc /HPF (<5) H 07/22/21 00:35 Ur Squamous Epith Cells ROTOR ASSEMBLER 07/22/21 00:35 Ur Urothelial Cells <5 /HPF (NONE SEEN) 07/22/21 00:35 Urine Bacteria 20-50 /HPF (<20) H 07/22/21 00:35 Urine Culture Reflexed Not needed 07/22/21 00:35 Urine Total Protein 2+ (Negative) H 07/22/21 00:33 Digoxin 1.60 ng/mL (0.80-2.00) 07/21/21 23:10 SARS-CoV-2 Rap RNA(RT-PCR) Negative (NEGATIVE) 07/21/21 23:05 Assessment And Plan - Plan Physical exam: General: Alert, In no apparent distress, Oriented x3 HEENT: Atraumatic, Normocephalic Neck: Supple, 2+ carotid pulse no bruit Respiratory: Clear to auscultation bilaterally Cardiovascular: No edema, Normal pulses Capillary refill: <2 Seconds Gastrointestinal: Other (Enterocutaneous fistula, moisture associated dermatitis/excoriation to abdomen.) Antibiotics: Meropenem Start: 07/26 Assessment/plan Enterocutaneous fistula Recommend continuing meropenem. Also recommend placing colostomy bag over fistula to monitor output. Continue to monitor for electrolyte abnormalities, optimize nutrition--albumin goal greater than equal to 4 mg/dl. Continue on TPN. Recommend local wound care to be applied around colostomy bag IV: Apply petroleum gauze and change dressing b.i.d. Recommend patient's be sent to LTAC for further wound care/antibiotic management. Bacteremia Blood cultures growing Klebsiella pneumoniae ESBL producing. Repeat blood cultures pending. Continue meropenem for 7 days following a negative blood culture. UTI and Urine growing E coli and ESBL producing Klebsiella, continue meropenem for 7 days. TE on CKD Nephrology following -medical management per primary team -plan of care discussed with Dr. Loyola Thank you for consultation. Physician Review Additional Text: COVID: negative CT scan: Impression: Anterior abdominal wall defect with exposed small bowel along the anterior abdomen. Oral contrast within the stomach reached the anterior aspect of the abdomen with the most likely extravasation. Status post rectosigmoid colon resection and reanastomosis Left internal ureteral stent in good position Slightly decreased inhomogenous attenuation right hepatic lobe suspicious for fatty liver Coronary artery calcification Renal US: COMPARISON: Abdomen Pelvis Wo Contrast dated 07/22/2021 FINDINGS: The right kidney measures grossly 8.7 x 4.9 cm. The left kidney measures grossly 9.94.7 cm. Cortical thickness is normal. There is increased renal cortical echogenicity that is probably due to underlying medical renal disease. Body habitus affects and increased cortical echogenicity. No hydronephrosis or suspicious renal mass. Patient has an indwelling left ureteral stent is difficult to visualize sonographically. Bladder could not be accessed for visualization. CT study performed several hours earlier show the bladder contracted around a Bae catheter. IMPRESSION: Underlying medical renal disease is evident but no hydronephrosis and no mass lesions seen. Physical exam: General: Alert, In no apparent distress, Oriented x3 , daughter at the bed side HEENT: Neck supple Respiratory: Clear to auscultation bilaterally, Normal air movement Cardiovascular: Regular rate/rhythm, Normal S1 S2 Capillary refill: <2 Seconds Gastrointestinal: Normal bowel sounds, profuse watery dark liquid in ostomy bag, mild Tenderness to palpation around ostomy bag Musculoskeletal: No tenderness Integumentary: Significant skin breakdown to the abdomen. Swelling, tenderness noted. Abdominal wound noted with fistula. Wound extends from below umbilicus across the entire abdomen down to the pelvic region with exposed dermis and sharron renetta fistula noted. Neurological: Normal speech, Normal strength at 5/5 x4 extr, Normal tone, Normal affect Blood Cx showed ESBL Impression: Severe abdominal wound complicated with abdominal wall fistula with rectosigmoid colon resection/reanastomosis and prior complicated hysterectomy with complications Acute on chronic renal disease stage IV Diabetes mellitus type 2 Hypertension Hypothyroidism Plan: Severe abdominal wound complicated with abdominal wall fistula with rectosigmoid colon resection/reanastomosis and prior complicated hysterectomy with complications: Patient cont to be n.p.o. no plan for surgical intervention, ostomy bag on top of fistula with profuse watery drainage noted, and ID consult advised to cont zosyn but we have to switch to [id number] mg due to ESBL , will cont TPN per surgical recommendation and keep pt NPO, nutritional consult requested to follow pt in am, cont imodium 2 mg Q 4 hours, Octeriotide 75 mcg TID Acute on chronic renal disease stage IV: resovled with Hydration and TPN, Cr back to nl Renal ultrasound shows medical renal disease. nephrology following UTI: +ESBL, change ABX to Merropenem yesterday Diabetes mellitus type 2: HGAIC at 5 Continue Accu-Cheks and sliding scale. Hypertension: Well controlled Hypothyroidism: Cont synthyroid 25 mcg daily u Insomnia -Cont trazadone DVT PPX: SCD for now. If no intervention is planned will need to change management facilitator to heparin. Anemia -? zosyn related, iron profile consistent with anemia of chronic disease Thrombocytopenia -Better off zoysn Code status: in. Code status: Full code Discharge Plan: Patient will likely require long-term acute care facility placement at [place] after wound care eval in am and if surgery ok , paper work all faxed to [facility]
--- NOTE | 2021-07-27 15:11 | PN ---
Subjective: The patient lying in bed. Family by the bedside. No new acute event. Chart reviewed. Objective: Vital Signs: Temperature 97, pulse 69, respirations 16, blood pressure 103/54. Lungs: Basal crackles. Heart: S1 and S2. Regular. Abdomen: Soft, nontender. Bowel sounds present. Extremities: No edema. Laboratory Data: Shows WBC 4.2, hemoglobin 9.1, platelets are 113. Chemistry shows sodium 143, pota ssium 3.7, chloride 112, bicarb 23, BUN 29, creatinine 1.9, glucose is 180. Ferritin is 734. Albumi n level is 1.5. Micro data is showing gram-negative rods and blood. ESBL Escherichia coli from 06/30 4. Urine is also showing gram-negative rods. Assessment And Plan: 1.Bacteremia secondary to extended spectrum beta-lactamases Klebsiella pneumoniae. The patient is c urrently being treated with meropenem. 2.Protein-calorie malnourishment with currently on TPN. 3.Pancytopenia in a patient with enterocutaneous fistula. 4.Urinary tract infection. 5.Diabetes mellitus. 6.Hypertension. 7.Renal failure. 8.Status post rectosigmoid colon resection and reanastomosis and prior complicated hysterectomy with complication. Continue empiric antibiotic with meropenem. We will follow the patient as needed. NF/MODL Voice ID: [id number] Report ID: [id number]
[2021-07-27] MEDS ORDERED: AA 5%/D20W/ELECTROLYTES-TPN 2,000 ML, Lipids 20% 250 ML with MULTIVITAMINS INJ 10 ML IV SCH ×3 (17:00)
[2021-07-27] MEDS: ASPIRIN 81 MG CHEWABLE TABLET PO SCH (17:13)
[2021-07-27] MEDS: TRAZODONE 50 MG TABLET PO SCH (21:24)
[2021-07-27] MEDS: QUETIAPINE 25 MG TAB PO SCH (21:24)
[2021-07-27] MEDS: ATORVASTATIN 20 MG TAB PO SCH (21:24)
[2021-07-27] MEDS: MELATONIN 5 MG TABLET PO SCH (21:24)
--- NOTE | 2021-07-28 00:11 | PN ---
Date of Progress Note: 07/27/2021 Chief Complaint: Acute kidney injury, urinary tract infection. History Of Present Illness: The patient appears to be not in acute distress. Physical Examination: Vital Signs: Blood pressure 110/60, heart rate is 68, respiratory rate 19. Lungs: Clear to auscultation bilaterally. Heart: S1, S2. Abdomen: Soft, benign. Extremities: No edema. Impression And Plan: 1.Acute on chronic kidney injury. Patient developed acute tubular necrosis from prolonged prerenal state. Serum creatinine on admission was 2.5 and improved to 1.1. Baseline creatinine level at this point is unknown, patient had proteinuria, pyuria. Proteinuria is of mild degree and the patient ma y benefit from CARITO inhibitor for long-term. Renal ultrasound showed asymmetric size kidneys, right k idney smaller 8.7 cm. There is no obstructive uropathy, although she has a history of left ureteral obstruction as left internal ureteral stent exchange pending. 2.Abnormal liver function test, history of cholecystectomy. Monitor lipase. Recently done lipase i s within normal limits. Reevaluate amylase. 3.Hypercalcemia, mild. Monitor. Continue adequate hydration and avoid hydrochlorothiazide diuretic . EB/MODL Voice ID: [id number] Report ID: [id number]
[2021-07-28] MEDS: INSULIN -REGULAR HUMAN 50 UNIT/0.5 ML ML SQ SCH ×4 (06:00→18:00)
[2021-07-28] MEDS: LEVOTHYROXINE SOD 0.025 MG TAB PO SCH (06:47)
--- NOTE | 2021-07-28 08:31 | ECHO ---
HEIGHT: 5 ft 3 in WEIGHT: 150 lb 0 oz DATE OF STUDY: 07/27/[address]: Adan Segura 2-DIMENSIONAL: YES M.MODE: YES DOPPLER: YES COLOR FLOW: YES TDS: YES PORTABLE: NO DEFINITY: NO BUBBLE STUDY: NO DIAGNOSIS: VENTRICULAR TACHYCARDIA CARDIAC HISTORY: CATHERIZATION:YES SURGERY: NO PROSTHETIC VALVE: NO PACEMAKER: NO MEASUREMENTS (cm) DIASTOLIC (NORMALS) SYSTOLIC (NORMALS) IVSd 1.0 (0.6-1.2) LA Diam 1.8 (1.9-4.0) LVEF 35-40% LVIDd 4.0 (3.5-5.7) LVIDs 3.5 (2.0-3.5) %FS % LVPWd 1.0 (0.6-1.2) Ao Diam 2.9 (2.0-3.7) 2 DIMENSIONAL ASSESSMENT: RIGHT ATRIUM: NORMAL LEFT ATRIUM: NORMAL RIGHT VENTRICLE: NORMAL LEFT VENTRICLE: NORMAL TRICUSPID VALVE: NORMAL MITRAL VALVE: NORMAL PULMONIC VALVE: NORMAL AORTIC VALVE: NORMAL PERICARDIAL EFFUSION: NONE AORTIC ROOT: NORMAL LEFT VENTRICULAR WALL MOTION: MODERATE GLOBAL HYPOKINESIS. DOPPLER/COLOR FLOW: NORMAL COMMENTS: MODERATE GLOBAL HYPOKINESIS. LEFT VENTRICULAR EJECTION FRACTION 35-40%. NO THROMBUS. TECHNICALLY DIFFICULT STUDY. TECHNOLOGIST: Joan WATSON
[2021-07-28] MEDS: DRONABINOL 2.5 MG PO SCH (09:00)
[2021-07-28] MEDS: OCTREOTIDE ACETATE 100 MCG/ML IV SCH ×2 (09:54→14:00)
[2021-07-28] MEDS: THIAMINE 200 MG/2 ML INJ IVP SCH (09:54)
[2021-07-28] MEDS: METOPROLOL TAR 25 MG TAB PO SCH (09:54)
[2021-07-28] MEDS: FOLIC ACID 1 MG in NA CHLORIDE 0.9% 50 ML IV SCH (09:54)
[2021-07-28] MEDS: DULOXETINE 30 MG CAP PO SCH (09:54)
[2021-07-28] MEDS: CALCIUM CARBONATE 500 MG TAB PO SCH (09:55)
[2021-07-28] MEDS: DIGOXIN 0.25 MG TABLET PO SCH (09:55)
[2021-07-28] MEDS: MORPHINE 2 MG/ML SYR IV PRN ×2 (10:12→14:51)
[2021-07-28] MEDS: Meropenem 500 MG/100 ML BAG IV SCH (10:12)
--- NOTE | 2021-07-28 11:13 | P.PN ---
Subjective Date of Service: 07/28/21 Primary Care Provider: jail doctor Chief Complaint: Abdominal wound, abdominal fistula Patient seen examined at bedside, pending transfer to [facility]. Review of Systems 10-point ROS is otherwise unremarkable Physical Examination - Vital Signs Temperature: 97.8 F Blood Pressure: 122/63 Pulse: 65 Respirations: 16 Pulse Ox (%): 99 - Studies Laboratory Last Values WBC 9.10 K/uL (4.3-10.9) 07/21/21 23:10 RBC 4.06 M/uL (3.86-4.86) 07/21/21 23:10 Hgb 11.9 g/dL (12.0-15.0) L 07/21/21 23:10 Hct 36.4 % (36.0-45.0) 07/21/21 23:10 MCV 89.6 fL (80-100) 07/21/21 23:10 MCH 29.3 pg (27.0-35.0) 07/21/21 23:10 MCHC 32.7 g/dL (32.0-36.0) 07/21/21 23:10 RDW 16.8 % (12.1-15.2) H 07/21/21 23:10 Plt Count 243 K/uL (152-406) 07/21/21 23:10 MPV 7.2 fL (7.6-11.3) L 07/21/21 23:10 Neutrophils % 61.0 % (41.7-73.7) 07/21/21 23:10 Lymphocytes % 32.7 % (15.3-44.8) 07/21/21 23:10 Monocytes % 5.1 % (3.3-12.3) 07/21/21 23:10 Eosinophils % 0.8 % (0-4.4) 07/21/21 23:10 Basophils % 0.4 % (0-1.3) 07/21/21 23:10 Absolute Neutrophils 5.5 K/uL (1.8-8.0) 07/21/21 23:10 Absolute Lymphocytes 3.0 K/uL (0.7-4.9) 07/21/21 23:10 Absolute Monocytes 0.5 K/uL (0.1-1.3) 07/21/21 23:10 Absolute Eosinophils 0.1 K/uL (0-0.5) 07/21/21 23:10 Absolute Basophils 0.0 K/uL (0-0.5) 07/21/21 23:10 PT 12.3 SECONDS (9.5-12.5) 07/21/21 23:10 INR 1.07 07/21/21 23:10 Sodium 133 mmol/L (136-145) L 07/21/21 23:10 Potassium 3.8 mmol/L (3.5-5.1) 07/21/21 23:10 Chloride 94 mmol/L (98-107) L 07/21/21 23:10 Carbon Dioxide 27 mmol/L (21-32) 07/21/21 23:10 BUN 43 mg/dL (7-18) H 07/21/21 23:10 Creatinine 2.52 mg/dL (0.55-1.3) H 07/21/21 23:10 Estimated GFR 19 mL/min (=/>90) L 07/21/21 23:10 Glucose 112 mg/dL (74-106) H 07/21/21 23:10 Lactic Acid 1.6 mmol/L (0.4-2.0) 07/21/21 23:10 Uric Acid 13.6 mg/dL (2.6-6.0) H 07/22/21 00:00 Calcium 9.2 mg/dL (8.5-10.1) 07/21/21 23:10 Magnesium 2.3 mg/dL (1.8-2.4) 07/21/21 23:10 Total Bilirubin 0.5 mg/dL (0.2-1.0) 07/21/21 23:10 Direct Bilirubin 0.2 mg/dL (0-0.2) 07/21/21 23:10 AST 69 U/L (15-37) H 07/21/21 23:10 ALT 49 U/L (12-78) 07/21/21 23:10 Alkaline Phosphatase 247 U/L (45-117) H 07/21/21 23:10 Rapid Troponin I < 0.02 ng/mL (0.0-0.045) 07/21/21 23:10 NT-Pro-B Natriuret Pep 1873 pg/mL (<125) H 07/21/21 23:10 Serum Total Protein 8.1 g/dL (6.4-8.2) 07/21/21 23:10 Albumin 2.3 g/dL (3.4-5.0) L 07/21/21 23:10 Globulin 5.8 g/dL (2.3-3.5) H 07/21/21 23:10 Albumin/Globulin Ratio 0.4 (1.1-1.8) L 07/21/21 23:10 Lipase 273 U/L (73-393) 07/21/21 23:10 Procalcitonin 12.43 ng/mL (<0.050) H 07/22/21 00:00 TSH 4.980 uIU/mL (0.360-3.740) H 07/22/21 00:00 Free T4 1.37 ng/dL (0.76-1.46) 07/22/21 00:00 Urine pH 7.0 (5.0-7.0) 07/22/21 00:33 Ur Specific [place] 1.015 (1.005-1.030) 07/22/21 00:33 Glucose (UA)(Auto) Negative (Negative) 07/22/21 00:33 Urine Ketones Negative (Negative) 07/22/21 00:33 Urine Blood 3+ (Negative) H 07/22/21 00:33 Urine Nitrite Positive (Negative) H 07/22/21 00:33 Ur Leukocyte Esterase 3+ (Negative) H 07/22/21 00:33 Urine RBC 20-50 /HPF (NONE SEEN) H 07/22/21 00:35 Urine WBC Tntc /HPF (<5) H 07/22/21 00:35 Ur Squamous Epith Cells HEDIS MANAGER 07/22/21 00:35 Ur Urothelial Cells <5 /HPF (NONE SEEN) 07/22/21 00:35 Urine Bacteria 20-50 /HPF (<20) H 07/22/21 00:35 Urine Culture Reflexed Not needed 07/22/21 00:35 Urine Total Protein 2+ (Negative) H 07/22/21 00:33 Digoxin 1.60 ng/mL (0.80-2.00) 07/21/21 23:10 SARS-CoV-2 Rap RNA(RT-PCR) Negative (NEGATIVE) 07/21/21 23:05 Assessment And Plan - Plan Physical exam: General: Alert, In no apparent distress, Oriented x3 HEENT: Atraumatic, Normocephalic Neck: Supple, 2+ carotid pulse no bruit Respiratory: Clear to auscultation bilaterally Cardiovascular: No edema, Normal pulses Capillary refill: <2 Seconds Gastrointestinal: Other (Enterocutaneous fistula, moisture associated dermatitis/excoriation to abdomen.) Antibiotics: Meropenem Start: 07/26 Assessment/plan Enterocutaneous fistula Recommend continuing meropenem. Also recommend placing colostomy bag over fistula to monitor output--output over past several days has been less than 200 ml. Continue to monitor for electrolyte abnormalities, optimize nutri tion--albumin goal greater than equal to 4 mg/dl. Continue on TPN. Recommend local wound care to be applied around colostomy bag: Apply petroleum gauze and cover with dry cloth--change dressing b.i.d. Recommend patient's be sent to LTAC for further wound care/antibiotic management. Bacteremia Blood cultures growing Klebsiella pneumoniae ESBL producing. Repeat blood cultures pending. Continue meropenem for 7 days following a negative blood culture. UTI Urine growing E coli and ESBL producing Klebsiella, continue meropenem for 7 days. TE on CKD Nephrology following -medical management per primary team -plan of care discussed with Dr. Loyola Thank you for consultation.
[2021-07-28] MEDS ORDERED: DEXTROSE 50% IV SCH ×8 (17:00)
[2021-07-28] MEDS ORDERED: WATER IV SCH ×8 (17:00)
[2021-07-28] MEDS ORDERED: AMINO ACIDS 10% IV SCH ×8 (17:00)
[2021-07-28] MEDS ORDERED: [UNRECOGNIZED DRUG - OTHER] IV SCH ×8 (17:00)
[2021-07-28] MEDS ORDERED: MULTIVITAMINS IV SCH ×8 (17:00)
[2021-07-28] MEDS: ASPIRIN 81 MG CHEWABLE TABLET PO SCH (18:13)
[2021-07-28 19:43] VITALS: BP 127/67; TEMP 96.8
[2021-07-28] MEDS ORDERED: Meropenem 1 GM/100 ML BAG IV SCH (21:00)
[2021-07-29] MEDS ORDERED: [UNRECOGNIZED DRUG - OTHER] IV SCH ×9 (17:00)
[2021-07-29] MEDS ORDERED: AMINO ACIDS 10% IV SCH ×9 (17:00)
[2021-07-29] MEDS ORDERED: DEXTROSE 50% IV SCH ×9 (17:00)
[2021-07-29] MEDS ORDERED: WATER IV SCH ×9 (17:00)
[2021-07-29] MEDS ORDERED: LIPIDS IV SCH ×9 (17:00)
--- NOTE | 2021-07-30 14:45 | PN ---
Date of Progress Note: 07/28/2021 Subjective: The patient was admitted with acute kidney injury, abdominal wall cellulitis. The patie nt had elevation in the creatinine upon admission up to 2.5 secondary to toxic ATN, poor perfusion, A TN. After hydration, kidney function has been improved. Obstruction has been ruled out with CT. Physical Examination: Vital Signs: When I saw the patient; blood pressure 122/63, pulse of 65, afebrile. The patient had good urine output of 1300, positive of 700. Chest: Clear to auscultation. Heart: S1, S2. Regular. Abdomen: Soft, nontender. Colostomy. Extremities: No edema. Neurologic: Alert. No focality. Laboratory Data: WBC 7, H and H 9.1/27.8, platelet 170. Sodium 138, potassium 3.8, bicarb 26, BUN 2 8, creatinine 0.8, calcium 8.7, magnesium 2.2, albumin 1.6, corrected calcium is 10.7. Current Medications: The patient on include aspirin, meropenem 500 b.i.d., atorvastatin, digoxin, me toprolol 25 b.i.d., trazodone, folic acid, loperamide, levothyroxine, octreotide 75 t.i.d., morphine, TPN, thiamin. Assessment And Plan: 1.Acute kidney injury secondary to prerenal, toxic ATN, small sized kidney. Obstructive uropathy hays s been ruled out. Kidney function has been improved. I am going to go ahead and continue hydration of the TPN and we will monitor. 2.Hypercalcemia, hyponatremia. I am going to go ahead and make adjustment on the patient's TPN. We will eliminate the calcium and increase the potassium to 80 and we will follow up. Continue on the same rate. 3.Urinary tract infection secondary to ESBL and Klebsiella, on meropenem. Given the improvement in the kidney function, I increased the meropenem. 4.Bacteremia secondary to urosepsis as above. 5.Enterocutaneous fistula with bacteremia as above. Follow up with ID. [email or web address] CARLOS Voice ID: [id number] Report ID: [id number]
== END 2021-07-28 19:48 | DRG 919 ==
LOC: ER 22:41 → ERHOLD 07-22 01:32 → 2ND 07-22 01:37
PROVIDERS: ADMIT Family Medicine; ATTEND Hospitalist
PROC: 3E0336Z Introduction of Nutritional Substance into Peripheral Vein, Percutaneous Approach (ICD-10-PCS; principal; 2021-07-22)
DX: T81.83XA Persistent postprocedural fistula, initial encounter (principal); E43 Unspecified severe protein-calorie malnutrition; A41.9 Sepsis, unspecified organism; N17.0 Acute kidney failure with tubular necrosis; L03.311 Cellulitis of abdominal wall; K63.2 Fistula of intestine; N18.4 Chronic kidney disease, stage 4 (severe); N39.0 Urinary tract infection, site not specified; I47.2 Ventricular tachycardia; Z16.12 Extended spectrum beta lactamase (ESBL) resistance; D61.818 Other pancytopenia; E87.1 Hypo-osmolality and hyponatremia; I12.9 Hypertensive chronic kidney disease with stage 1 through stage 4 chronic kidney disease, or unspecified chronic kidney disease; E11.22 Type 2 diabetes mellitus with diabetic chronic kidney disease; E11.65 Type 2 diabetes mellitus with hyperglycemia; E03.9 Hypothyroidism, unspecified; E83.52 Hypercalcemia; G47.00 Insomnia, unspecified; B96.1 Klebsiella pneumoniae [K. pneumoniae] as the cause of diseases classified elsewhere; B96.20 Unspecified Escherichia coli [E. coli] as the cause of diseases classified elsewhere; S30.811A Abrasion of abdominal wall, initial encounter; T21.22XA Burn of second degree of abdominal wall, initial encounter; R79.89 Other specified abnormal findings of blood chemistry; Z79.82 Long term (current) use of aspirin; Z90.710 Acquired absence of both cervix and uterus; Z68.26 Body mass index [BMI] 26.0-26.9, adult; Z79.899 Other long term (current) drug therapy; Z79.890 Hormone replacement therapy; Z20.822 Contact with and (suspected) exposure to COVID-19
CPT/HCPCS: 36415; 71045; 74176; 76770; 80048; 80053; 80061; 80076; 80162; 81003; 81015; 82306; 82550; 82570; 82728; 82947; 82977; 83036; 83540; 83605; 83690; 83735; 83880; 83935; 83970; 84100; 84132; 84145; 84156; 84300; 84439; 84443; 84466; 84484; 84550; 85025; 85610; 87040; 87077; 87086; 87088; 87186; 87205; 93005; 93306; 96361; 96365; 96375; 97162; 97530; 99285; C9113; J2185; J2270; J2354; J2405; J2543; J3411; J7030; J7040; J7042; J7120; J7799; U0003